=== PATIENT | male | born 1945 | race Hispanic/Latino ===

== ENCOUNTER → 2019-01-14 | Day surgery (SDC) | payer MEDICARE ==
[~2019-01-14] MED LIST: AMLODIPINE BESY10 MG PO; FENTANYL CITRATE/PF 100MCG/2 ML INJ ONE; LISINOPRIL10 MG PO; MIDAZOLAM HCL 2 MG/2 ML VIAL ONE; OR PHACO EYE KIT ONE; PREOP PHACO EYE KIT ONE
--- OUTSIDE RECORDS SUMMARY | 2019-01-14 10:36 | XMS REPORT | Clinical Summary ---
Author Author [facility] Organization [facility] Address Unknown Phone Unavailable Care Team Providers Care Carburetor Repairer Name Role Phone Juan Ramon Peters PCP Allergies No Known Allergies Medications End Date Status Medication Sig Dispensed Refills Start Date Active amLODIPine (NORVASC) 10 Take 10 mg by 0 MG tablet mouth daily. Active lisinopril Take 40 mg by 0 (PRINIVIL,ZESTRIL) 40 MG mouth daily. tablet 02/22/2019 Active furosemide (LASIX) 20 MG Take 1 tablet 30 tablet 0 tablet (20 mg total) 8 by mouth daily. Active pantoprazole (PROTONIX) Take 1 tablet 60 tablet 0 40 MG tablet (40 mg total) 8 by mouth 2 (two) times daily. Active clarithromycin (BIAXIN) Take 500 mg 0 500 MG tablet by mouth 2 (two) times daily. Active omeprazole (PRILOSEC) 20 Take 20 mg by 0 MG capsule mouth daily. Active amoxicillin (AMOXIL) 500 Take 500 mg 0 MG capsule by mouth 3 (three) times daily. 03/03/2018 predniSONE (DELTASONE) 20 Take 2 10 tablet 0 201 MG tablet tablets (40 8 mg total) by mouth daily for 10 days. 03/31/2018 predniSONE (DELTASONE) 20 Take 2 8 tablet 0 03/27/201 MG tablet tablets (40 8 mg total) by mouth daily for 4 days. 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) 03/27/2018 Emergency Emergency Medicine Rigoberto Cash Jr., MD 02/21/2018 Anesthesia Gastroenterology Event Ady Gamez MD UPPER ENDOSCOPY,BIOPSY 02/21/2018 Surgery Gastroenterology Cornel Lassiter MD Pathak, Yashash D Dyspnea and respiratory abnormality (Primary Dx); Hypertension, unspecified type; Hiatal hernia; Pneumonitis; Bilateral leg edema; Hypervolemia, unspecified hypervolemia type; Esophageal dysmotility; Gastroesophageal reflux disease, esophagitis presence not specified 02/18/2018 Hospital General Internal Medicine - Encounter 02/21/2018 02/18/2018 Orders Only General Internal Medicine after 01/13/2018 Family History Medical History Relation Name Comments No Known Problem Brother No Known Problem Father No Known Problem Maternal Grandfather No Known Problem Mother No Known Problem Paternal Grandfather No Known Problem Paternal Grandmother No Known Problem Sister Relation Name Status Comments Brother Father Maternal Grandfather Mother Paternal Grandfather Paternal Grandmother Sister Social History Date Tobacco Use Types Packs/Day Years Used Never Smoker Smokeless Tobacco: Never Used Alcohol Use Drinks/Week oz/Week Comments No Sex Assigned at Date Recorded Not on file Industry Job Start Date Occupation Not on file Not on file Not on file Travel End Travel History Travel Start No recent travel history available. Last Filed Vital Signs Time Taken Vital Sign Reading 03/27/2018 5:07 AM CDT Blood Pressure 138/78 03/27/2018 5:07 AM CDT Pulse 79 03/26/2018 10:31 PM CDT Temperature 36.8 C (98.3 F) 03/27/2018 5:07 AM CDT Respiratory Rate 16 03/27/2018 5:07 AM CDT Oxygen Saturation 98% 02/18/2018 2:40 PM CDT Inhaled Oxygen 21% Concentration 03/26/2018 10:31 PM CDT Weight 106.6 kg (235 lb) 03/26/2018 10:31 PM CDT Height 170.2 cm (5' 7") 03/26/2018 10:31 PM CDT Body Mass Index 36.81 Plan of Treatment Not on file Procedures Comments Procedure Name Priority Date/Time Associated Diagnosis RHYTHM STRIP - SCAN 08/29/2018 3:[address] CHEST WITHOUT IV Routine 06/17/[address] scan, chest CONTRAST 8:04 AM CDT RHYTHM STRIP - SCAN 02/25/2018 12:50 PM CDT REPORT OF PROCEDURE - 02/21/2018 ENDOSCOPY URL 2:28 PM CDT TISSUE EXAM AP Routine 02/21/2018 1:12 PM CDT UPPER ENDOSCOPY,BIOPSY 02/21/2018 Abnormal findings on 1:00 PM CDT imaging test CBC (HEMOGRAM ONLY) Routine 02/21/2018 5:03 AM CDT MAGNESIUM Routine 02/21/2018 5:03 AM CDT PROTHROMBIN TIME/INR Routine 02/21/2018 5:03 AM CDT LIPID PANEL Routine 02/21/2018 5:03 AM CDT HEPATIC FUNCTION PANEL Routine 02/21/2018 5:03 AM CDT CALCIUM, IONIZED Routine 02/21/2018 5:03 AM CDT BASIC METABOLIC PANEL (7) Routine 02/21/2018 5:[address] ABDOMEN/PELVIS WITH IV Routine 02/20/2018 CONTRAST 8:47 PM CDT ECHOCARDIOGRAM REPORT - 02/20/2018 SCAN 5:43 PM CDT 2D ECHO W/ DOPPLER Routine 02/20/2018 (CW/PW/COLOR) 3:02 PM CDT NM MYOCARDIAL PERFUSION Routine 02/20/2018 SPECT, PHARM(LEXISCAN) 2:28 PM CDT TREADMILL Routine 02/20/2018 TOLERANCE(NON-NUCLEAR 10:10 AM CDT TREADMILL) CBC (HEMOGRAM ONLY) Routine 02/20/2018 5:03 AM CDT MAGNESIUM Routine 02/20/2018 5:03 AM CDT PROTHROMBIN TIME/INR Routine 02/20/2018 5:03 AM CDT LIPID PANEL Routine 02/20/2018 5:03 AM CDT HEPATIC FUNCTION PANEL Routine 02/20/2018 5:03 AM CDT CALCIUM, IONIZED Routine 02/20/2018 5:03 AM CDT BASIC METABOLIC PANEL (7) Routine 02/20/2018 5:03 AM CDT FL ESOPHAGUS PHARNYX Routine 02/19/2018 AND/OR CERVICAL 10:13 AM CDT CBC W/PLT COUNT & AUTO Routine 02/19/2018 DIFFERENTIAL 4:35 AM CDT HEMOGLOBIN A1C Routine 02/19/2018 4:35 AM CDT CBC W/PLT COUNT & AUTO Routine 02/19/2018 DIFFERENTIAL 4:35 AM CDT MAGNESIUM Routine 02/19/2018 4:35 AM CDT PROTHROMBIN TIME/INR Routine 02/19/2018 4:35 AM CDT LIPID PANEL Routine 02/19/2018 4:35 AM CDT HEPATIC FUNCTION PANEL Routine 02/19/2018 4:35 AM CDT CALCIUM, IONIZED Routine 02/19/2018 4:35 AM CDT BASIC METABOLIC PANEL (7) Routine 02/19/2018 4:35 AM CDT TROPONIN I Routine 02/19/2018 4:35 AM CDT ECG 12-LEAD Routine 02/18/2018 8:15 PM CDT HEPATIC FUNCTION PANEL Routine 02/18/2018 5:40 PM CDT TROPONIN I Routine 02/18/2018 5:40 PM CDT COMPREHENSIVE METABOLIC Routine 02/18/2018 PANEL 5:40 PM CDT BLOOD GAS, ARTERIAL Routine 02/18/2018 2:51 PM CDT XR ABDOMEN 1 VIEW STAT 02/18/2018 12:[address] CHEST PE TEST DESIGN STAT 02/18/2018 9:37 AM CDT XR CHEST 1 VIEW STAT 02/18/2018 PORTABLE/BEDSIDE 8:44 AM CDT ECG 12-LEAD Routine 02/18/2018 8:18 AM CDT Procedure Note - Interface, External Ris In - 02/18/2018 7:08 PM CDT Ventricula r Rate 59 BPM Atrial Rate 59 BPM P-R Interval 166 ms QRS Duration 136 ms Q-T Interval 452 ms QTC Calculatio n(Bazett) 447 ms P [place] 40 degrees R [place] -33 degrees T [place] 36 degrees Sinus bradycardi a Left axis deviation Non-specif ic intra-vent ricular conduction block Abnormal ECG No previous ECGs available ECG 12-LEAD STAT 02/18/2018 8:18 AM CDT CBC W/PLT COUNT & AUTO STAT 02/18/2018 DIFFERENTIAL 8:03 AM CDT CREATINE KINASE (CK), STAT 02/18/2018 TOTAL AND MB 8:03 AM CDT B-TYPE NATRIURETIC FACTOR STAT 02/18/2018 (BNP) 8:03 AM CDT PT/APTT STAT 02/18/2018 8:03 AM CDT CBC W/PLT COUNT & AUTO STAT 02/18/2018 DIFFERENTIAL 8:03 AM CDT TROPONIN I STAT 02/18/2018 8:03 AM CDT MAGNESIUM STAT 02/18/2018 8:03 AM CDT BASIC METABOLIC PANEL (7) STAT 02/18/2018 8:03 AM CDT after 01/13/2018 Results * RHYTHM STRIP - SCAN (08/29/2018 3:11 PM CDT) Only the most recent of 2 results within the time period is included. Narrative Performed At * CT chest without IV contrast (06/17/2018 8:04 AM CDT) Narrative Performed At FINAL REPORT 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 COMPARISON: Esophagram February 19, [address] February 18, 2018 TECHNIQUE: Chest CT exam WITHOUT intravenous contrast. The exam was performed according to our department dose-optimization protocol, which includes automated exposure control, adjustments of mA and kV according to patient size. Iterative reconstructions are also sometimes employed. FINDINGS: Lungs are clear. Central airways are clear. No pleural effusion, pneumothorax, or pleural nodularity. No mediastinal or hilar lymphadenopathy is demonstrated. Heart is at the upper limits of normal in size (left atrium anterior posterior dimension 4.5 cm). Mild coronary artery calcification noted. No pericardial effusion. Thoracic aorta normal in diameter (ascending thoracic aorta diameter 4.0 cm). Main pulmonary artery at the upper limits of normal measuring approximately 3.2 cm. Esophagus is mildly patulous. Osseous structures are notable for multilevel thoracic vertebral moderate degenerative changes. IMPRESSION: Clear lungs. Mildly patulous esophagus, likely related to gastroesophageal reflux demonstrated on esophagram February 19, 2018. 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 COMPARISON: Esophagram February 19, [address] February 18, 2018 TECHNIQUE: Chest CT exam WITHOUT intravenous contrast. The exam was performed according to our department dose-optimization protocol, which includes automated exposure control, adjustments of mA and kV according to patient size. Iterative reconstructions are also sometimes employed. FINDINGS: Lungs are clear. Central airways are clear. No pleural effusion, pneumothorax, or pleural nodularity. No mediastinal or hilar lymphadenopathy is demonstrated. Heart is at the upper limits of normal in size (left atrium anterior posterior dimension 4.5 cm). Mild coronary artery calcification noted. No pericardial effusion. Thoracic aorta normal in diameter (ascending thoracic aorta diameter 4.0 cm). Main pulmonary artery at the upper limits of normal measuring approximately 3.2 cm. Esophagus is mildly patulous. Osseous structures are notable for multilevel thoracic vertebral moderate degenerative changes. IMPRESSION: Clear lungs. Mildly patulous esophagus, likely related to gastroesophageal reflux demonstrated on esophagram February 19, 2018. Signed: Dwayne Blas MD Report Verified Date/Time: 06/17/2018 08:22:25 Reading Location: [facility] Diagnostic Imaging Reading Room - [place] [id number] Performing Organization Address City/State/Zipcode Phone Number [facility] * REPORT OF PROCEDURE - ENDOSCOPY URL (02/21/2018 2:28 PM CDT) Narrative Performed At * Tissue Exam (02/21/2018 1:12 PM CDT) Case Report Surgical Pathology [facility] Report [facility] Case: [id number] Authorizing Provider:Ady Gamez MDCollected: 02/21/2018 1312 Ordering Location: [address] Received: 02/22/2018 0750 Service Pathologist: He Aparicio MD Specimens: A) - Biopsy, Gastric B) - Biopsy, Gastroesophageal Junction DIAGNOSIS A. STOMACH, BIOPSY [facility] - CHRONIC INACTIVE GASTRITIS [facility] - POSITIVE FOR HELICOBACTER ON IMMUNOSTAIN B. GASTROESOPHAGEAL JUNCTION, BIOPSY - MILD CHRONIC ESOPHAGITIS - NEGATIVE FOR HELICOBACTER ON WARTHIN-STARRY STAIN Signing Pathologist Direct Phone Line: [phone] CPT Code(s) 71333 x 2; 97160 x 2; 85335 [facility] CLINICAL HISTORY Abnormal findings on imaging [facility] test [facility] SPECIMEN SOURCE A. Gastric biopsy; B. [facility] Gastroesophageal junction [facility] biopsy GROSS DESCRIPTION Specimen is received in two [facility] containers of formalin both [facility] labeled with the patient's information. Part A labeled "gastric biopsy" consists of two fragments of valencia tissue measuring 0.1 and 0.2 cm, submitted A1. Part B labeled "gastroesophageal junction biopsy" consists of two fragments of off white soft tissue both measuring 0.3 cm, submitted entirely B1. CG/pl MICROSCOPIC DESCRIPTION Performed. [facility] SPECIAL STUDIES The following special studies [facility] were performed on this case [facility] and the interpretation is incorporated in the diagnostic report above: H. Pylori - Positive The immunohistochemistry test was developed and its performance characteristics determined by [facility], Pathology Laboratory. It has not been cleared or approved by the U.S. Food and Drug Administration. The FDA has determined that such clearance or approval is not necessary. The test is used for clinical purposes. It should not be regarded as investigational or for research. This laboratory is certified under the Clinical Laboratory Improvement Amendments of 1988 (CLIA-88) as qualified to perform high complexity clinical laboratory testing. Specimen Tissue - Biopsy, Gastric Performing Organization Address [facility] Phone Number [address] * Calcium, Ionized (02/21/2018 5:03 AM CDT) Only the most recent of 3 results within the time period is included. Calcium, Ion 1.04 (L) 1.12 - 1.27 mmol/L [facility] pH, Blood 7.47 [facility] Specimen Blood - Arm, Left Performing Organization Address City/[facility] [place] [address] [phone] [place] [address] * Prothrombin time/INR (02/21/2018 5:03 AM CDT) Only the most recent of 3 results within the time period is included. Protime 14.3 11.7 - 14.7 seconds [facility] INR 1.1 <=5.9 [facility] Specimen Blood - Arm, Left Narrative Performed At RECOMMENDED COUMADIN/WARFARIN INR THERAPY RANGES [facility] STANDARD DOSE: 2.0 - 3.0 Includes: PROPHYLAXIS for venous thrombosis, [facility] systemic embolization; TREATMENT for venous thrombosis and/or pulmonary embolus. HIGH RISK: Target INR is 2.5-3.5 for patients with mechanical heart valves. Performing Organization Address City/[facility] Phone Number [facility] [address] [place] [address] [facility] * CBC (Hemogram only) (02/21/2018 5:03 AM CDT) Only the most recent of 2 results within the time period is included. WBC 7.8 3.5 - 10.5 K/L [facility] RBC 4.86 4.63 - 6.08 M/L [facility] Hemoglobin 14.8 13.7 - 17.5 GM/DL [facility] Hematocrit 44.1 40.1 - 51.0 % [facility] MCV 90.7 79.0 - 92.2 fL [facility] MCH 30.5 25.7 - 32.2 pg [facility] MCHC 33.6 32.3 - 36.5 GM/DL [facility] RDW 12.9 11.6 - 14.4 % [facility] Platelets 199 150 - 450 K/CU MM [facility] MPV 11.5 9.4 - 12.4 fL [facility] nRBC 0 0 - 0 /100 WBC [facility] Specimen Blood - Arm, Left Performing Organization Address [facility] Phone Number [facility] [address] [place] [address] [facility] * Magnesium (02/21/2018 5:03 AM CDT) Only the most recent of 4 results within the time period is included. Magnesium 2.5Comment: Specimen slightly 1.6 - 2.6 mg/dL [facility] hemolyzed [facility] Specimen Blood - Arm, Left Performing Organization Address City/[facility] Phone Number [facility] [address] [place], [place] [phone] [facility] * Hepatic function panel (02/21/2018 5:03 AM CDT) Only the most recent of 4 results within the time period is included. Protein, Total 6.9Comment: Specimen slightly 6.0 - 8.3 gm/dL [facility] Albumin 4.3Comment: Specimen slightly 3.5 - 5.0 g/dL [facility] Total Bilirubin 0.6Comment: Specimen slightly 0.2 - 1.2 mg/dL [facility] Bilirubin, Direct 0.2Comment: Specimen slightly 0.1 - 0.5 mg/dL [facility] Alkaline Phosphatase 78 40 - 150 U/L [facility] AST 46 (H)Comment: Specimen 5 - 34 U/L [facility] ALT 28Comment: Specimen slightly 6 - 55 U/L [facility] Specimen Blood - Arm, Left Performing Organization Address City/State/Zipcode Phone Number [facility] [address] [place] [address] [facility] * Lipid panel (02/21/2018 5:03 AM CDT) Only the most recent of 3 results within the time period is included. Triglycerides 76Comment: Specimen slightly mg/dL [facility] Cholesterol 172Comment: Specimen slightly mg/dL [facility] HDL 38 mg/dL [facility] LDL Calculated 119 mg/dL [facility] Specimen Blood - Arm, Left Narrative Performed At Triglyceride Reference Range: [facility] Low Risk <150 [facility] [id number] High Risk 200-499 Very High Risk>=500 Cholesterol Reference Range: Low Risk <200 Ylqrijvvgc508-165 High Risk>240 HDL Cholesterol Reference Range: Low Risk >=60 High Risk <40 LDL Cholesterol Reference Range: Optimal<100 Near Cwtuvfg190-887 Hmerhylrkx343-308 Gwhs385-524 Very High >=190 Performing Organization Address [facility] Phone Number [facility] [address] [place], [place] [phone] [facility] * Basic metabolic panel (02/21/2018 5:03 AM CDT) Only the most recent of 4 results within the time period is included. Sodium 138 136 - 145 meq/L [facility] Potassium 3.9Comment: Specimen slightly 3.5 - 5.1 meq/L [facility] Chloride 106 98 - 107 meq/L [facility] CO2 20 (L) 22 - 29 meq/L [facility] BUN 33 (H) 7 - 21 mg/dL [facility] Creatinine 0.87Comment: Specimen slightly 0.57 - 1.25 mg/dL [facility] Glucose 101 70 - 105 mg/dL [facility] Calcium 9.1 8.4 - 10.2 mg/dL [facility] EGFR 86Comment: ESTIMATED GFR IS mL/min/1.73 sq m [facility] NOT ACCURATE CREATININE [facility] CLEARANCE IN PREDICTING GLOMERULAR FILTRATION RATE. ESTIMATED GFR IS NOT APPLICABLE FOR DIALYSIS PATIENTS. Specimen Blood - Arm, Left Performing Organization Address [facility] Phone Number [place] [phone] [place] [address] [facility] * CT abdomen/pelvis with IV contrast (02/20/2018 8:47 PM CDT) Narrative Performed At FINAL REPORT [employer] CT abdomen and pelvis with contrast. INDICATION: Hernia, complicated COMPARISON:No prior studies available for comparison. TECHNIQUE: Multiple contiguous transaxial images of the abdomen and pelvis were obtained following the administration of intravenous contrast. This exam was performed according to our departmental dose optimization program which includes automated exposure control, adjustment of the mA and/or kV according to patient size and/or use of iterative reconstructive technique. FINDINGS: The lung bases demonstrate mild atelectasis. The osseous structures demonstrate degenerative change. The liver demonstrates a subtle enhancing lesion in the right hepatic lobe measuring 1.9 x 1.4 cm. Additional foci of hypodensity are seen measuring up to 1.7 cm in the left hepatic lobe, suggestive of cysts statistically. The gallbladder is unremarkable. There is no biliary dilatation. The spleen, pancreas, and adrenal glands are unremarkable. The stomach is underdistended limiting its evaluation. Both kidneys are unremarkable. The urinary bladder is underdistended limiting its evaluation. There is no hydronephrosis. The prostate gland appears prominent. There is no free fluid in the pelvis. There is scattered colonic diverticulosis without acute diverticulitis. Residual dense contrast material is seen throughout the colonic loops, limiting its evaluation. There is no CT evidence of acute appendicitis. There is no fluid collection or lymphadenopathy. Small fat-containing bilateral inguinal hernias are noted. IMPRESSION: 1. Colonic diverticulosis without acute diverticulitis. 2. Small fat-containing bilateral inguinal hernias. 3. Enhancing lesion in the right hepatic lobe as above which can be further evaluated with follow-up MRI with contrast for more definitive assessment. Additional foci of hypodensity suggestive of cysts. Signed: Zoran Smith MD Report Verified Date/Time:02/20/2018 22:28:44 Reading Location: [address] Consult Reading Room Procedure Note Interface, External Ris In - 02/20/2018 10:30 PM CDT FINAL REPORT CT abdomen and pelvis with contrast. INDICATION: Hernia, complicated COMPARISON: No prior studies available for comparison. TECHNIQUE: Multiple contiguous transaxial images of the abdomen and pelvis were obtained following the administration of intravenous contrast. This exam was performed according to our departmental dose optimization program which includes automated exposure control, adjustment of the mA and/or kV according to patient size and/or use of iterative reconstructive technique. FINDINGS: The lung bases demonstrate mild atelectasis. The osseous structures demonstrate degenerative change. The liver demonstrates a subtle enhancing lesion in the right hepatic lobe measuring 1.9 x 1.4 cm. Additional foci of hypodensity are seen measuring up to 1.7 cm in the left hepatic lobe, suggestive of cysts statistically. The gallbladder is unremarkable. There is no biliary dilatation. The spleen, pancreas, and adrenal glands are unremarkable. The stomach is underdistended limiting its evaluation. Both kidneys are unremarkable. The urinary bladder is underdistended limiting its evaluation. There is no hydronephrosis. The prostate gland appears prominent. There is no free fluid in the pelvis. There is scattered colonic diverticulosis without acute diverticulitis. Residual dense contrast material is seen throughout the colonic loops, limiting its evaluation. There is no CT evidence of acute appendicitis. There is no fluid collection or lymphadenopathy. Small fat-containing bilateral inguinal hernias are noted. IMPRESSION: 1. Colonic diverticulosis without acute diverticulitis. 2. Small fat-containing bilateral inguinal hernias. 3. Enhancing lesion in the right hepatic lobe as above which can be further evaluated with follow-up MRI with contrast for more definitive assessment. Additional foci of hypodensity suggestive of cysts. Signed: Zoran Smith MD Report Verified Date/Time: 02/20/2018 22:28:44 Reading Location: [address] Consult Reading Room Performing Organization Address City/State/Zipcode Phone Number [facility] * ECHOCARDIOGRAM REPORT - SCAN (02/20/2018 5:43 PM CDT) Narrative Performed At * 2D Echo W/Doppler(CW/PW/Color) (02/20/2018 3:02 PM CDT) Ejection Fraction [facility] Narrative Performed At Transthoracic Echocardiography Report (TTE) [facility] Demographics [facility] Patient NameDominique DONNELLY of Study02/20/2018 DARLENE Gender Male Visit [id number] Race Unknown [id number] Number Date of 1945 ReferringAdalbertou Cornel [place] Age 72 year(s) SonographerOscar CHICHI Viera Interpreting [facility] Needs to be Pre Physician Read Sherri Chowdhury MD Procedure Type of Study TTE procedure:2DECHO W DOPPLER(CW/PW/COLOR) (Routine) Indications:Shortness of breath. Clinical History HTN, HERNIA REPAIR, OBESITY HGB 14.4 HCT 42.8 % Contrast Medium: Definity. Amount - 2 ml Height: 66 inches Weight: 108.41 kg (239 lbs) BSA: 2.16 m^2 BMI: 38.58 kg/m^2 HR: 67 bpm BP: 134/58 mmHg Summary Mildly increased left ventricle cavity size. Normal overall left ventricular systolic function. No apparent segmental wall motion abnormalities. Borderline concentric LV hypertrophy. The calculated ejection fraction was estimated 65 %. Indeterminate diastolic function. No prior ECHO for comparison LA size is mildly enlarged (35-41 ml/m2) . The right ventricular cavity size is mildly enlarged . Normal right ventricular systolic function. RA size is mildly dilated. Signature Findings Left Ventricle Mildly increased left ventricle cavity size. Normal overall left ventricular systolic function. No apparent segmental wall motion abnormalities. Borderline concentric LV hypertrophy. The calculated ejection fraction was estimated 65 %. Indeterminate diastolic function. Left AtriumLA size is mildly enlarged (35-41 ml/m2) . Right VentricleThe right ventricular cavity size is mildly enlarged . Normal right ventricular systolic function. Right Atrium RA size is mildly dilated. Aortic Valve There is no aortic stenosis. The aortic valve leaflets appear mildly thickened There is no aortic regurgitation. Mitral Valve Mild MV leaflet thickening. Mild mitral annular calcification. Tricuspid ValveNormal TV structure and function. Estimated peak systolic PA pressure is cannot be determined due to inadequate TR velocity signal . Pulmonic Valve Normal PV structure and function. Mild pulmonary regurgitation. PericardiumNo pericardial effusion is visualized. IVC/SVC/PA/PV/PleuralThe estimated RA pressure by IVC dynamics 0-5mmHg . Chambers/Structures Left Atrium LA Volume: 79.95 ml LA Area: 24.34 cm^2 LA Vol. Index: 37 ml/m^2 Left Ventricle LVIDd: 5.25 cm LVIDs: 2.98 cm LV Septum Diastolic: 1.13 cm LV PW Diastolic: 1.03 cmLV FS: 43.2 % LVEDV Diehl's:177.24 ml LVESV Diehl's:57.24 mlLVEDVI: 82 ml/m^2 LVEF Diehl's: 67.7 %LVESVI: 26 ml/m^2 LVOT Diameter: 2.14 cm Right Ventricle RV Diast Dim.: 3.37 cm Aorta Ao Root S of Leslie.: 3.23 cm Doppler/Quantitative Measurements Mitral Valve MV Peak E-Wave: 0.78 m/s Peak Gradient: 2.44 mmHg MV Dillon. 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 Clinical History HTN, HERNIA REPAIR, OBESITY HGB 14.4 HCT 42.8 % Contrast Medium: Definity. Amount - 2 ml Height: 66 inches Weight: 108.41 kg (239 lbs) BSA: 2.16 m^2 BMI: 38.58 kg/m^2 HR: 67 bpm BP: 134/58 mmHg Summary Mildly increased left ventricle cavity size. Normal overall left ventricular systolic function. No apparent segmental wall motion abnormalities. Borderline concentric LV hypertrophy. The calculated ejection fraction was estimated 65 %. Indeterminate diastolic function. No prior ECHO for comparison LA size is mildly enlarged (35-41 ml/m2) . The right ventricular cavity size is mildly enlarged . Normal right ventricular systolic function. RA size is mildly dilated. Signature Findings Left Ventricle Mildly increased left ventricle cavity size. Normal overall left ventricular systolic function. No apparent segmental wall motion abnormalities. Borderline concentric LV hypertrophy. The calculated ejection fraction was estimated 65 %. Indeterminate diastolic function. Left Atrium LA size is mildly enlarged (35-41 ml/m2) . Right Ventricle The right ventricular cavity size is mildly enlarged . Normal right ventricular systolic function. Right Atrium RA size is mildly dilated. Aortic Valve There is no aortic stenosis. The aortic valve leaflets appear mildly thickened There is no aortic regurgitation. Mitral Valve Mild MV leaflet thickening. Mild mitral annular calcification. Tricuspid Valve Normal TV structure and function. Estimated peak systolic PA pressure is cannot be determined due to inadequate TR velocity signal . Pulmonic Valve Normal PV structure and function. Mild pulmonary regurgitation. Pericardium No pericardial effusion is visualized. IVC/SVC/PA/PV/Pleural The estimated RA pressure by IVC dynamics 0-5mmHg . Chambers/Structures Left Atrium LA Volume: 79.95 ml LA Area: 24.34 cm^2 LA Vol. Index: 37 ml/m^2 Left Ventricle LVIDd: 5.25 cm LVIDs: 2.98 cm LV Septum Diastolic: 1.13 cm LV PW Diastolic: 1.03 cm LV FS: 43.2 % LVEDV Diehl's:177.24 ml LVESV Diehl's:57.24 ml LVEDVI: 82 ml/m^2 LVEF Diehl's: 67.7 % LVESVI: 26 ml/m^2 LVOT Diameter: 2.14 cm Right Ventricle RV Diast Dim.: 3.37 cm Aorta Ao Root S of Leslie.: 3.23 cm Doppler/Quantitative Measurements Mitral Valve MV Peak E-Wave: 0.78 m/s Peak Gradient: 2.44 mmHg MV Dillon. Peak: Tissue Doppler E' Septal Velocity: 0.12 m/s E/E': 6.58 LVOT LVOT Diameter: 2.14 cm LVOT Area: 3.6 cm^2 Performing Organization Address City/State/Zipcode Phone Number [facility] * NM myocardial perfusion SPECT,pharm(Lexiscan) (02/20/2018 2:28 PM CDT) Narrative Performed At FINAL REPORT [employer] PROCEDURE:Rest/Stress MYOCARDIAL PERFUSION SPECT with regadenoson\\XA9\\ CPT CODE:78786 INDICATION:Shortness of breath, cardiac origin suspected HISTORY:Cardiac risk factors: Hypertension. Other cardiovascular history: No reported CAD. Recent cardiac symptoms: Chest pain. Current cardiovascular-related medications: Amlodipine, Lovenox, Lasix. PROTOCOL:10.4 mCi of Tc-99m sestamibi was injected iv at rest, and SPECT (tomographic) images were obtained. Also, 30.3 mCi of Tc-99m sestamibi was injected iv at expected peak pharmacologic effect, and gated SPECT images were obtained. PRELIMINARY STRESS TEST DATA FROM NONINVASIVE CARDIOLOGY: Pharmacologic stress was by 10-second iv infusion of 0.4 mg of regadenoson. Radiotracer was injected 30 seconds after start of stress. Heart rate was 53 beats/min at rest and 80 beats/min (54 % of MPHR) at tracer injection. BP was 148/73 mmHg at rest and 145/83 mmHg at tracer injection. Stress was stopped for predetermined endpoint. The patient experienced dyspnea, flushing; treatment was not required. Preliminary ECG evaluation revealed sinus bradycardia, right bundle branch block at rest and no ischemic changes with stress. (Final ECG interpretation and other stress and monitoring data are reported separately by Cardiology.) IMAGING FINDINGS:Study quality is good. Images obtained after rest and stress injections show decreased inferolateral wall intensity. LV and RV volumes appear normal. Gated images obtained at rest after stress show normal LV wall motion and thickening. QGS LVEF is greater than 60%. IMPRESSION: 1. Normal study.2. Appropriate pharmacologic stress. 3. Normal myocardial perfusion with diaphragmatic attenuation artifact. 4. Normal resting LV function.5. Normal extracardiac tracer distribution.6. No previous [facility] study for comparison. NONINVASIVE RISK STRATIFICATION: The above findings are considered low risk (<1% annual mortality rate) based on the following criterion: - Normal or small myocardial perfusion defect at rest or with stress ([facility]. 2012;59(9):878-88.) Signed: Trevin Nichols MD Report Verified Date/Time:02/20/2018 15:43:59 Reading Location: [address] Reading Room Procedure Note Interface, External Ris In - 02/20/2018 3:46 PM CDT FINAL REPORT PROCEDURE: Rest/Stress MYOCARDIAL PERFUSION SPECT with regadenoson\\XA9\\ CPT CODE: 03317 INDICATION: Shortness of breath, cardiac origin suspected HISTORY: Cardiac risk factors: Hypertension. Other cardiovascular history: No reported CAD. Recent cardiac symptoms: Chest pain. Current cardiovascular-related medications: Amlodipine, Lovenox, Lasix. PROTOCOL: 10.4 mCi of Tc-99m sestamibi was injected iv at rest, and SPECT (tomographic) images were obtained. Also, 30.3 mCi of Tc-99m sestamibi was injected iv at expected peak pharmacologic effect, and gated SPECT images were obtained. PRELIMINARY STRESS TEST DATA FROM NONINVASIVE CARDIOLOGY: Pharmacologic stress was by 10-second iv infusion of 0.4 mg of regadenoson. Radiotracer was injected 30 seconds after start of stress. Heart rate was 53 beats/min at rest and 80 beats/min (54 % of MPHR) at tracer injection. BP was 148/73 mmHg at rest and 145/83 mmHg at tracer injection. Stress was stopped for predetermined endpoint. The patient experienced dyspnea, flushing; treatment was not required. Preliminary ECG evaluation revealed sinus bradycardia, right bundle branch block at rest and no ischemic changes with stress. (Final ECG interpretation and other stress and monitoring data are reported separately by Cardiology.) IMAGING FINDINGS: Study quality is good. Images obtained after rest and stress injections show decreased inferolateral wall intensity. LV and RV volumes appear normal. Gated images obtained at rest after stress show normal LV wall motion and thickening. QGS LVEF is greater than 60%. IMPRESSION: 1. Normal study. 2. Appropriate pharmacologic stress. 3. Normal myocardial perfusion with diaphragmatic attenuation artifact. 4. Normal resting LV function. 5. Normal extracardiac tracer distribution. 6. No previous [facility] study for comparison. NONINVASIVE RISK STRATIFICATION: The above findings are considered low risk (<1% annual mortality rate) based on the following criterion: - Normal or small myocardial perfusion defect at rest or with stress ([facility]. 2012;59(9):857-81.) Signed: Trevin Nichols MD Report Verified Date/Time: 02/20/2018 15:43:59 Reading Location: [address] Reading Room Performing Organization Address City/State/Zipcode Phone Number GE RIS * Treadmill tolerance(Non-Nuclear Treadmill) (02/20/2018 10:10 AM CDT) Narrative Performed At Protocol Name Regadenoson [employer] Time In Exercise Phase 00:01:00 Max. Systolic BP 145 mmHg Max Diastolic BP 83 mmHg Max Heart Rate 80 BPM Max Predicted Heart Rate 147 BPM Reason For Termination Predetermined end point Reason for Test Dyspnea Target HR Formula (220 - Age)*100% Arrhythmias none Resting ECG sinus bradycardia right bundle branch block ST Changes No Significant Changes Overall Impression Indeterminate due to pharmacological stress Chest Pain none HR Response To Exercise BP Response To Exercise AMLODIPINE lovenox LASIX Confirmed by fellow Kailey Rosenbaum ([id number]) on 02/20/2018 1:47:28 PM Confirmed by MD MIRANDA JORGE ([id number]) on 02/25/2018 2:02:27 PM Procedure Note Interface, External Ris In - 02/25/2018 2:02 PM CDT Protocol Name Regadenoson Time In Exercise Phase 00:01:00 Max. Systolic BP 145 mmHg Max Diastolic BP 83 mmHg Max Heart Rate 80 BPM Max Predicted Heart Rate 147 BPM Reason For Termination Predetermined end point Reason for Test Dyspnea Target HR Formula (220 - Age)*100% Arrhythmias none Resting ECG sinus bradycardia right bundle branch block ST Changes No Significant Changes Overall Impression Indeterminate due to pharmacological stress Chest Pain none HR Response To Exercise BP Response To Exercise AMLODIPINE lovenox LASIX Confirmed by fellow Kailey Rosenbaum ([id number]) on 02/20/2018 1:47:28 PM Confirmed by MD RUTH, BENITO ([id number]) on 02/25/2018 2:02:27 PM Performing Organization Address City/State/Zipcode Phone Number RJ MUSE * FL esophagus (02/19/2018 10:13 AM CDT) Narrative Performed At FINAL REPORT [facility] Esophagram History: GERD Technique: Esophagram was performed using barium with air-contrast. Total fluoroscopy time: 0.93 minutes Total number of films: 18 Findings: Extensive tertiary contractions are seen throughout the esophagus, suggestive of esophageal dysmotility. There is no esophageal diverticulum or hiatus hernia. Moderate gastroesophageal reflux was observed. Impression: 1. Moderate gastroesophageal reflux. 2. Extensive tertiary contractions suggestive of underlying esophageal dysmotility. Signed: Zoran Smith MD Report Verified Date/Time:02/19/2018 10:31:00 Reading Location: [address] Ortho Consult Reading Room Procedure Note Interface, External Ris In - 02/19/2018 10:33 AM CDT FINAL REPORT Esophagram History: GERD Technique: Esophagram was performed using barium with air-contrast. Total fluoroscopy time: 0.93 minutes Total number of films: 18 Findings: Extensive tertiary contractions are seen throughout the esophagus, suggestive of esophageal dysmotility. There is no esophageal diverticulum or hiatus hernia. Moderate gastroesophageal reflux was observed. Impression: 1. Moderate gastroesophageal reflux. 2. Extensive tertiary contractions suggestive of underlying esophageal dysmotility. Signed: Zoran Smith MD Report Verified Date/Time: 02/19/2018 10:31:00 Reading Location: [address] Ortho Consult Reading Room Performing Organization Address City/State/Zipcode Phone Number GE RIS * CBC with platelet count + automated diff (02/19/2018 4:35 AM CDT) Only the most recent of 2 results within the time period is included. WBC 7.8 3.5 - 10.5 K/L [facility] RBC 5.04 4.63 - 6.08 M/L [facility] Hemoglobin 15.3 13.7 - 17.5 GM/DL [facility] Hematocrit 44.7 40.1 - 51.0 % [facility] MCV 88.7 79.0 - 92.2 fL [facility] MCH 30.4 25.7 - 32.2 pg [facility] MCHC 34.2 32.3 - 36.5 GM/DL [facility] RDW 12.7 11.6 - 14.4 % [facility] Platelets 218 150 - 450 K/CU MM [facility] MPV 11.6 9.4 - 12.4 fL [facility] nRBC 0 0 - 0 /100 WBC [facility] % Neutros 83 % [facility] % Lymphs 15 % [facility] % Monos 1 % [facility] % Eos 0 % [facility] % Baso 0 % [facility] # Neutros 6.45 (H) 1.78 - 5.38 K/L [facility] # Lymphs 1.17 (L) 1.32 - 3.57 K/L [facility] # Monos 0.08 (L) 0.30 - 0.82 K/L [facility] # Eos 0.00 (L) 0.04 - 0.54 K/L [facility] # Baso 0.01 0.01 - 0.08 K/L [facility] Immature 1 0 - 1 % [facility] Granulocytes-Relative [facility] Specimen Blood - Arm, Left Performing Organization Address City/State/Zipcode Phone Number [facility] [address] * Troponin I (02/19/2018 4:35 AM CDT) Only the most recent of 3 results within the time period is included. Troponin I <0.01 0.00 - 0.03 ng/mL [facility] Specimen Blood - Arm, Left Narrative Performed At Troponin I (TnI) levels must be interpreted in the context of the presenting [facility] symptoms and the clinical findings. Elevated TnI levels indicate myocardial [facility] damage, but are not specific for ischemic heart disease. Elevated TnI levels are seen in patients with other cardiac conditions (including myocarditis and congestive heart failure), and slight TnI elevations occur in patients with other conditions, including sepsis, renal failure, acidosis, acute neurological disease, and persistent tachyarrhythmia. Performing Organization Address City/State/Zipcode Phone Number [address] * Hemoglobin A1c (02/19/2018 4:35 AM CDT) Hemoglobin A1C 5.0 4.3 - 6.1 % [facility] Specimen Blood - Arm, Left Performing Organization Address City/State/[facility] Phone Number [place] [phone] * ECG 12 lead (02/18/2018 8:15 PM CDT) Only the most recent of 2 results within the time period is included. Narrative Performed At Ventricular Rate 67 BPM GE MUSE Atrial Rate 67 BPM P-R Interval 158 ms QRS Duration 142 ms Q-T Interval 448 ms QTC Calculation(Bazett) 473 ms P [place] 41 degrees R [place] -39 degrees T [place] 22 degrees Normal sinus rhythm Left axis deviation Right bundle branch block Abnormal ECG When compared with ECG of 18-FEB-2018 08:18, No significant change was found Confirmed by Semaj RAINEY MICHAEL ([id number]) on 02/19/2018 8:12:03 AM Procedure Note Interface, External Ris In - 02/19/2018 8:12 AM CDT Ventricular Rate 67 BPM Atrial Rate 67 BPM P-R Interval 158 ms QRS Duration 142 ms Q-T Interval 448 ms QTC Calculation(Bazett) 473 ms P [place] 41 degrees R [place] -39 degrees T [place] 22 degrees Normal sinus rhythm Left axis deviation Right bundle branch block Abnormal ECG When compared with ECG of 18-FEB-2018 08:18, No significant change was found Confirmed by Semaj RAINEY MICHAEL ([id number]) on 02/19/2018 8:12:03 AM Performing Organization Address City/State/Zipcode Phone Number GE MUSE * Comprehensive metabolic panel (02/18/2018 5:40 PM CDT) Protein, Total 8.3Comment: Specimen 6.0 - 8.3 gm/dL [facility] hemolyzed [facility] Albumin 4.8Comment: Specimen 3.5 - 5.0 g/dL [facility] hemolyzed [facility] Alkaline Phosphatase 99 40 - 150 U/L [facility] Total Bilirubin 0.6Comment: Specimen 0.2 - 1.2 mg/dL [facility] hemolyzed [facility] Sodium 139 136 - 145 meq/L [facility] Potassium 4.6Comment: Specimen 3.5 - 5.1 meq/L [facility] hemolyzed [facility] Chloride 111 (H) 98 - 107 meq/L [facility] CO2 20 (L) 22 - 29 meq/L [facility] BUN 18 7 - 21 mg/dL [facility] Creatinine 0.94Comment: Specimen 0.57 - 1.25 mg/dL [facility] moderately hemolyzed [facility] Glucose 113 (H) 70 - 105 mg/dL [facility] Calcium 10.1 8.4 - 10.2 mg/dL [facility] AST 42 (H)Comment: Specimen 5 - 34 U/L [facility] hemolyzed [facility] ALT 21Comment: Specimen moderately 6 - 55 U/L [facility] EGFR 79Comment: ESTIMATED GFR IS mL/min/1.73 sq m [facility] NOT ACCURATE CREATININE [facility] CLEARANCE IN PREDICTING GLOMERULAR FILTRATION RATE. ESTIMATED GFR IS NOT APPLICABLE FOR DIALYSIS PATIENTS. Specimen Blood Narrative Performed At Add on [facility] Performing Organization Address [facility]/Zipcode Phone Number [facility] [address] [place] [address] [facility] * Blood gas, arterial (02/18/2018 2:51 PM CDT) pH, Arterial 7.46 (H) 7.35 - 7.45 [facility] pCO2, Arterial 33 (L) 35 - 45 mmHg [facility] pO2, Arterial 71 (L) 80 - 90 mmHg [facility] O2 Sat, Arterial 95.7 (L) 96.0 - 97.0 % [facility] HCO3, Arterial 23 21 - 29 mmol/L [facility] Base Excess, Arterial 0.0 -2.0 - 3.0 mmol/L [facility] Patient Temperature 36.1 C [facility] FIO2 21.0 % [facility] Specimen Blood - Arm, Right Performing Organization Address [facility] Phone Number [facility] [address] [place] [address] [facility] * XR abdomen / KUB 1 view (02/18/2018 12:23 PM CDT) Narrative Performed At FINAL REPORT [employer]. Abdomen one view INDICATION: Abdominal pain, shortness of breath COMPARISON: None available IMPRESSION: Two frontal images of the abdomen are provided. There is contrast residue in the bilateral renal collecting systems and bladder. The bowel gas pattern is nonspecific, but nonobstructive. Free air and fluid levels are not well assessed on a supine study. There are degenerative spine changes. No organomegaly is evident. Signed: Carmelo Alcazar MD Report Verified Date/Time:02/18/2018 12:34:13 Reading Location: [facility] Radiology Reading Room Procedure Note Interface, External Ris In - 02/18/2018 12:36 PM CDT FINAL REPORT Abdomen one view INDICATION: Abdominal pain, shortness of breath COMPARISON: None available IMPRESSION: Two frontal images of the abdomen are provided. There is contrast residue in the bilateral renal collecting systems and bladder. The bowel gas pattern is nonspecific, but nonobstructive. Free air and fluid levels are not well assessed on a supine study. There are degenerative spine changes. No organomegaly is evident. Signed: Carmelo Alcazar MD Report Verified Date/Time: 02/18/2018 12:34:13 Reading Location: [facility] Radiology Reading Room Performing Organization Address City/State/Zipcode Phone Number [facility] * CT chest PE test design (02/18/2018 9:37 AM CDT) Narrative Performed At FINAL REPORT [facility] CT OF THE CHEST, PULMONARY EMBOLISM PROTOCOL CLINICAL HISTORY:Shortness of breath TECHNIQUE: Precontrast axial images at the level of the pulmonary outflow tract are obtained for the purpose of contrast bolus tracking.Postcontrast axial images of the chest are subsequently obtained with optimal pulmonary arterial enhancement followed by delayed postcontrast images. Coronal 2D reformatted images are reviewed. This exam was performed according to our departmental dose-optimization program which includes automated exposure control, adjustment of the mA and/or kV according to patient size and/or use of iterative reconstruction technique. COMPARISON FILM:None DISCUSSION: TECHNICAL QUALITY: Adequate. PULMONARY ARTERIES: Proximal to its bifurcation,the main pulmonary artery measures 2.9 cm. No filling defects are identified within the pulmonary arteries to suggest acute pulmonary embolism. LINES/TUBES: None. LUNGS/AIRWAYS: Trachea and major airways are clear. No focal consolidation. Minimal subsegmental bibasilar atelectasis. PLEURA: No effusion or pneumothorax. HEART AND MEDIASTINUM: The ascending thoracic aorta is ectatic measuring 3.7 cm. No mediastinal or hilar lymphadenopathy. No pericardial effusion. Visualized heart is unremarkable for CT examination. BONES AND SOFT TISSUES: Degenerative changes in the thoracic spine. No destructive osseous lesion. UPPER ABDOMEN: Fluid attenuation cysts in the liver. Replaced left hepatic artery arises from the left gastric artery. Remainder of the visualized portions of the upper abdomen are unremarkable. IMPRESSION: Negative for pulmonary embolism. Mild ascending thoracic aortic ectasia. No acute findings in the chest. Signed: Patrick Harris MD Report Verified Date/Time:02/18/2018 09:55:34 Reading Location: [facility] Diagnostic Imaging Reading Room - [place] [id number] Procedure Note Interface, External Ris In - 02/18/2018 9:57 AM CDT FINAL REPORT CT OF THE CHEST, PULMONARY EMBOLISM PROTOCOL CLINICAL HISTORY: Shortness of breath TECHNIQUE: Precontrast axial images at the level of the pulmonary outflow tract are obtained for the purpose of contrast bolus tracking. Postcontrast axial images of the chest are subsequently obtained with optimal pulmonary arterial enhancement followed by delayed postcontrast images. Coronal 2D reformatted images are reviewed. This exam was performed according to our departmental dose-optimization program which includes automated exposure control, adjustment of the mA and/or kV according to patient size and/or use of iterative reconstruction technique. COMPARISON FILM: None DISCUSSION: TECHNICAL QUALITY: Adequate. PULMONARY ARTERIES: Proximal to its bifurcation,the main pulmonary artery measures 2.9 cm. No filling defects are identified within the pulmonary arteries to suggest acute pulmonary embolism. LINES/TUBES: None. LUNGS/AIRWAYS: Trachea and major airways are clear. No focal consolidation. Minimal subsegmental bibasilar atelectasis. PLEURA: No effusion or pneumothorax. HEART AND MEDIASTINUM: The ascending thoracic aorta is ectatic measuring 3.7 cm. No mediastinal or hilar lymphadenopathy. No pericardial effusion. Visualized heart is unremarkable for CT examination. BONES AND SOFT TISSUES: Degenerative changes in the thoracic spine. No destructive osseous lesion. UPPER ABDOMEN: Fluid attenuation cysts in the liver. Replaced left hepatic artery arises from the left gastric artery. Remainder of the visualized portions of the upper abdomen are unremarkable. IMPRESSION: Negative for pulmonary embolism. Mild ascending thoracic aortic ectasia. No acute findings in the chest. Signed: Patrick Harris MD Report Verified Date/Time: 02/18/2018 09:55:34 Reading Location: [facility] Diagnostic Imaging Reading Room - [place] [address] Performing Organization Address [facility] Phone Number GE [facility] * XR chest 1 view portable / bedside (02/18/2018 8:44 AM CDT) Narrative Performed At FINAL REPORT [facility] Chest one view INDICATION: Shortness of breath COMPARISON: None available IMPRESSION: Increased interstitial markings may indicate vascular congestion or mild atypical pneumonitis. No significant pleural effusion or pneumothorax is seen. Cardiomediastinal silhouette prominence is accentuated by obliquity and low lung volumes. No acute osseous abnormality is identified. Signed: Carmelo Alcazar MD Report Verified Date/Time:02/18/2018 08:47:14 Reading Location: [facility] Radiology Reading Room Procedure Note Interface, External Ris In - 02/18/2018 8:49 AM CDT FINAL REPORT Chest one view INDICATION: Shortness of breath COMPARISON: None available IMPRESSION: Increased interstitial markings may indicate vascular congestion or mild atypical pneumonitis. No significant pleural effusion or pneumothorax is seen. Cardiomediastinal silhouette prominence is accentuated by obliquity and low lung volumes. No acute osseous abnormality is identified. Signed: Carmelo Alcazar MD Report Verified Date/Time: 02/18/2018 08:47:14 Reading Location: [facility] Radiology Reading Room Performing Organization Address [facility] Hospital[facility] Phone Number GE [facility] * PT/PTT (02/18/2018 8:03 AM CDT) Protime 14.5 11.7 - 14.7 seconds [facility] INR 1.1 <=5.9 [facility] PTT 32.1 22.5 - 36.0 seconds [facility] Specimen Blood - Arm, Right Narrative Performed At RECOMMENDED COUMADIN/WARFARIN INR THERAPY RANGES [facility] STANDARD DOSE: 2.0 - 3.0 Includes: PROPHYLAXIS for venous thrombosis, [facility] systemic embolization; TREATMENT for venous thrombosis and/or pulmonary embolus. HIGH RISK: Target INR is 2.5-3.5 for patients with mechanical heart valves. Performing Organization Address City/[facility]/Zipcode Phone Number [facility] [address] [place], [place] [id number] [facility] * B-type Natriuretic Factor (BNP) (02/18/2018 8:03 AM CDT) BNP 95 0 - 100 pg/mL [facility] Specimen Blood - Arm, Right Performing Organization Address City/[facility] Hospitalcode Phone Number [facility] [address] [place] [address] [facility] * Creatine Kinase (CK), Total and MB (not available at [facility] [place]) (02/18/2018 8:03 AM CDT) Total CK 253 (H) 29 - 200 U/L [facility] CK-MB 4.0 0.0 - 6.6 ng/mL [facility] MB Relative Index 1.6 % [facility] Specimen Blood - Arm, Right Narrative Performed At CK-MB Reference Range: [facility] <6.7Normal [facility] 6.7-10.0Borderline >10.0 Abnormal Performing Organization Address [facility] Phone Number [facility] [address] [place] [address] [facility] after 01/13/2018 Insurance Payer Benefit Subscriber ID Type Phone Address Plan / Group [facility] - [employer]/MEDIC xxxxxxxxx MEDICARE MGD CARE ARE COMPLETE Advance Directives For more information, please contact: [address] [address] Date Inactivated Comments Code Status Date Activated 02/21/2018 9:03 PM Full Code 02/18/2018 12:00 PM This code status was determined by: Patient
--- OUTSIDE RECORDS SUMMARY | 2019-01-14 10:37 | XMS REPORT ---
[facility] Address Unknown Phone Unavailable Care Team Providers Care General Service Officer Name Role Phone Carlin PORTER Unavailable Unavailable Payers Payer Name Policy Type Policy Number Effective Date Expiration Date Problems This patient has no known problems. Allergies, Adverse Reactions, Alerts Allergy Name Allergy Type Status Severity Reaction(s) Onset Date Inactive Date Treating Clinician Comments No Known Allergies DA Active U 2018-04-15 00:00:00 Medications This patient has no known medications. 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 COMPARISON:Esophagram February 19, 2018Chest CT February 18, 2018 TECHNIQUE: Chest CT exam WITHOUT intravenous contrast. The exam was performed according to our department dose-optimization protocol, which includes automated exposure control, adjustments of mA and kV according to patient size. Iterative reconstructions are also sometimes employed. FINDINGS:Lungs are clear. Central airways are clear. No [...] on esophagram February 19, 2018. Signed: Dwayne Corrales MDReport Verified Date/Time: 06/17/2018 08:22:25 Reading Location: [facility] Diagnostic Imaging Reading Room - [place] [address] 1120 UE EXAM 2018-02-25 14:51:00 Surgical Pathology Report Case: [id number] Authorizing Provider: Ady Gamez MD Collected: 02/21/2018 1312 Ord ering Location: [address] Received: 02/22/2018 0750 Service Pathologist: He Aparicio MD Specimens: A) - Biopsy, Gastric B) - Biopsy, Gastroesophageal Junction A. STOMACH, BIOPSY- CHRONIC INACTIVE GASTRITIS- POSITIVE FOR HELICOBACTER ON IMMUNOSTAINB. GASTROESOPHAGEAL JUNCTION, BIOPSY- MILD CHRONIC ESOPHAGITIS- NEGATIVE FOR HELICOBACTER ON WARTHIN-STARRY STAIN Signing Pathologist Direct Phone Line: [phone] signed by He Aparicio MD on 02/25/2018 at 2:51 [id number] x 2; [id number] x 2; [id number] findings on imaging Scotty. Gastric biopsy; B. Gastroesophageal junction biopsySpecimen is received in two containers of formalin both labeled with the patient's information. Part A labeled "gastric biopsy" consists of two fragments of valencia tissue measuring 0.1 and 0.2 cm, submitted A1. Part B labeled "gastroesophageal junction biopsy" consists of two fragments of off white soft tissue both measuring 0.3 cm, submitted entirely B1. CG/pl Performed.The following special studies were performed on this case and the interpretation is incorporated in the diagnostic report above:H. Pylori - PositiveThe immunohistochemistry test was developed and its performance characteristics determined by [facility], Pathology Laboratory. It has not been [...] to perform high complexity clinical laboratory testing. CALCIUM, IONIZED 2018-02-21 07:34:00 CALCIUM IONIZED (BEAKER) (test wmbj=517) 1.04 mmol/L 1.12-1.27 PH, BLOOD (BEAKER) (test jtjj=7241) 7.47 [id number] 06:18:00* Test Item Value Reference Range Comments MAGNESIUM (BEAKER) (test aygl=182) 2.5 mg/dL 1.6-2.6 Specimen slightly hemolyzed BASIC METABOLIC [id number] 06:18:00* Test Item Value Reference Range Comments SODIUM (BEAKER) (test dnxp=076) 138 meq/L 136-145 POTASSIUM (BEAKER) (test epbl=501) 3.9 meq/L 3.5-5.1 Specimen slightly hemolyzed CHLORIDE (BEAKER) (test llje=855) 106 meq/L 98-107 CO2 (BEAKER) (test wlol=776) 20 meq/L 22-29 BLOOD UREA NITROGEN (BEAKER) (test eiqn=567) 33 mg/dL 7-21 CREATININE (BEAKER) (test rgtj=927) 0.87 mg/dL 0.57-1.25 Specimen slightly hemolyzed GLUCOSE RANDOM (BEAKER) (test miym=298) 101 mg/dL 70-105 CALCIUM (BEAKER) (test zrjv=909) 9.1 mg/dL 8.4-10.2 EGFR (BEAKER) (test asnd=3561) 86 mL/min/1.73 sq m ESTIMATED GFR IS NOT ACCURATE CREATININE CLEARANCE IN PREDICTING GLOMERULAR FILTRATION RATE. ESTIMATED GFR IS NOT APPLICABLE FOR DIALYSIS PATIENTS. LIPID [id number] 06:18:00* Test Item Value Reference Range Comments TRIGLYCERIDES (BEAKER) (test pkox=616) 76 mg/dL Specimen slightly hemolyzed CHOLESTEROL (BEAKER) (test fcym=630) 172 mg/dL Specimen slightly hemolyzed HDL CHOLESTEROL (BEAKER) (test rbyt=586) 38 mg/dL LDL CHOLESTEROL CALCULATED (BEAKER) (test iwhl=164) 119 mg/dL Triglyceride Reference Range: Low Risk <150 Borderline 150-199 High Risk 200-499 Very High Risk >=500Cholesterol Reference Range: Low Risk <200 Borderline 200-239 High Risk >240HDL Cholesterol Reference Range: Low Risk >=60 High Risk <40LDL Cholesterol Reference Range: Optimal <100 Near Optimal 100-129 Borderline 130-159 High 160-189 Very High >=190 HEPATIC FUNCTION [id number] 06:18:00* Test Item Value Reference Range Comments TOTAL PROTEIN (BEAKER) (test kspb=757) 6.9 gm/dL 6.0-8.3 Specimen slightly hemolyzed ALBUMIN (BEAKER) (test suib=6745) 4.3 g/dL 3.5-5.0 Specimen slightly hemolyzed BILIRUBIN TOTAL (BEAKER) (test vslf=091) 0.6 mg/dL 0.2-1.2 Specimen slightly hemolyzed BILIRUBIN DIRECT (BEAKER) (test cnfp=065) 0.2 mg/dL 0.1-0.5 Specimen slightly hemolyzed ALKALINE PHOSPHATASE (BEAKER) (test gtdf=669) 78 U/L 40-150 AST (SGOT) (BEAKER) (test hcdp=954) 46 U/L 5-34 Specimen slightly hemolyzed ALT (SGPT) (BEAKER) (test omfn=279) 28 U/L 6-55 Specimen slightly hemolyzed PROTHROMBIN [id number] 05:33:00* Test Item Value Reference Range Comments PROTIME (BEAKER) (test vqhq=125) 14.3 seconds 11.7-14.7 INR (BEAKER) (test turr=290) 1.1 <=5.9 RECOMMENDED COUMADIN/WARFARIN INR THERAPY RANGESSTANDARD DOSE: 2.0 - 3.0 Inclu hanny: PROPHYLAXIS for venous thrombosis, systemic embolization; TREATMENT for meri ous thrombosis and/or pulmonary embolus.HIGH RISK: Target INR is 2.5-3.5 for pat ients with mechanical heart valves.CBC (HEMOGRAM ONLY)2018-02-21 05:16:00* Test Item Value Reference Range Comments WHITE BLOOD CELL COUNT (BEAKER) (test qeqo=469) 7.8 K/ L 3.5-10.5 RED BLOOD CELL COUNT (BEAKER) (test tfou=923) 4.86 M/ L 4.63-6.08 HEMOGLOBIN (BEAKER) (test oqej=443) 14.8 GM/DL 13.7-17.5 HEMATOCRIT (BEAKER) (test zuuf=107) 44.1 % 40.1-51.0 MEAN CORPUSCULAR VOLUME (BEAKER) (test gasn=254) 90.7 fL 79.0-92.2 MEAN CORPUSCULAR HEMOGLOBIN (BEAKER) (test ndyq=654) 30.5 pg 25.7-32.2 MEAN CORPUSCULAR HEMOGLOBIN CONC (BEAKER) (test vyov=316) 33.6 GM/DL 32.3-36.5 RED CELL DISTRIBUTION WIDTH (BEAKER) (test gtax=820) 12.9 % 11.6-14.4 PLATELET COUNT (BEAKER) (test mqjt=957) 199 K/CU MM 150-450 MEAN PLATELET VOLUME (BEAKER) (test chte=243) 11.5 fL 9.4-12.4 NUCLEATED RED BLOOD CELLS (BEAKER) (test tzmx=945) 0 /100 WBC 0-0 CT, [id number] 22:28:00FINAL REPORT CT abdomen and pelvis with contrast. [...] is no hydronephrosis. The prostate gland appears prom inent. There is no free fluid in the pelvis. There is scattered colonic divertic ulosis without acute diverticulitis. Residual dense contrast material is seen th roughout the colonic loops, limiting its evaluation. There is no CT evidence of acute appendicitis. There is no fluid collection or lymphadenopathy. Small fat-c ontaining bilateral inguinal hernias are noted. IMPRESSION:1. Colonic diverticul osis without acute diverticulitis.2. Small fat-containing bilateral inguinal her nias.3. Enhancing lesion in the right hepatic lobe as above which can be further evaluated with follow-up MRI with contrast for more definitive assessment. Shay tional foci of hypodensity suggestive of cysts. Signed: Zoran Smith MDReport Fouzia ified Date/Time: 02/20/2018 22:28:44 Reading Location: [facility] C013X Ortho Consu lt Reading Room ARD IMAGING, MULTI, PHARM, [id number] 15:43:00FINAL REPORT PROCEDURE: Rest/Stress MYOCARDIAL PERFUSION SPECT with regadenoson\\XA9\\ CPT CODE: 42110 INDICATION: Shortness of breath, cardiac origin suspected HISTORY: Cardiac risk factors: Hypertension. Other cardiovascular history: No reported CAD. Recent cardiac sym ptoms: Chest pain. Current cardiovascular-related medications: Amlodipine, Loven ox, Lasix. PROTOCOL: 10.4 mCi of Tc-99m sestamibi was injected iv at rest, and SPECT (tomographic) images were obtained. Also, 30.3 mCi of Tc-99m sestamibi was injected iv at expected peak pharmacologic effect, and gated SPECT images w ere obtained. PRELIMINARY STRESS TEST DATA FROM NONINVASIVE CARDIOLOGY: Pharma cologic stress was by 10-second iv infusion of 0.4 mg of regadenoson. Radiotrace r was injected 30 seconds after start of stress. Heart rate was 53 beats/min at rest and 80 beats/min (54 % of MPHR) at tracer injection. BP was 148/73 mmHg at rest and 145/83 mmHg at tracer injection. Stress was stopped for predetermined e ndpoint. The patient experienced dyspnea, flushing; treatment was not required. Preliminary ECG evaluation revealed sinus bradycardia, right bundle branch block at rest and no ischemic changes with stress. (Final ECG interpretation and other stress and monitoring data are reported separately by Cardiology.) IMAGING FI NDINGS: Study quality is good. Images obtained after rest and stress inje ctions show decreased inferolateral wall intensity. LV and RV volumes appear nor mal. Gated images obtained at rest after stress show normal LV wall motion and t hickening. QGS LVEF is greater than 60%. IMPRESSION: 1. Normal study. 2. Mary ropriate pharmacologic stress. 3. Normal myocardial perfusion with diaphragmati c attenuation artifact. 4. Normal resting LV function. 5. Normal extracardiac t racer distribution. 6. No previous [facility] study for comparison. NONINVASIVE RI SK STRATIFICATION: The above findings are considered low risk (<1% annual mortality rate) based on the following criterion:- Normal or small myocardial perfusion defect at rest or with stress(JACC. 2012;59(9):857-81.) Signed: Trevin Nichols MDReport Verified Date/Time: 02/20/2018 15:43:59 Reading Location: [address] Reading Room [id number] 06:16:00* Test Item Value Reference Range Comments MAGNESIUM (BEAKER) (test mnln=772) 2.3 mg/dL 1.6-2.6 BASIC METABOLIC [id number] 06:16:00* Test Item Value Reference Range Comments SODIUM (BEAKER) (test xemd=225) 140 meq/L 136-145 POTASSIUM (BEAKER) (test lfni=121) 3.6 meq/L 3.5-5.1 CHLORIDE (BEAKER) (test wykr=441) 109 meq/L 98-107 CO2 (BEAKER) (test ttic=180) 22 meq/L 22-29 BLOOD UREA NITROGEN (BEAKER) (test kpsg=548) 35 mg/dL 7-21 CREATININE (BEAKER) (test gmsm=421) 0.94 mg/dL 0.57-1.25 GLUCOSE RANDOM (BEAKER) (test ywdj=717) 95 mg/dL 70-105 CALCIUM (BEAKER) (test jhda=732) 9.1 mg/dL 8.4-10.2 EGFR (BEAKER) (test seyv=0813) 79 mL/min/1.73 sq m ESTIMATED GFR IS NOT ACCURATE CREATININE CLEARANCE IN PREDICTING GLOMERULAR FILTRATION RATE. ESTIMATED GFR IS NOT APPLICABLE FOR DIALYSIS PATIENTS. LIPID [id number] 06:16:00* Test Item Value Reference Range Comments TRIGLYCERIDES (BEAKER) (test ichp=317) 76 mg/dL CHOLESTEROL (BEAKER) (test jbak=084) 155 mg/dL HDL CHOLESTEROL (BEAKER) (test kmjt=445) 34 mg/dL LDL CHOLESTEROL CALCULATED (BEAKER) (test uifl=970) 106 mg/dL Triglyceride Reference Range: Low Risk <150 Borderline 150-199 High Risk 200-499 Very High Risk >=500Cholesterol Reference Range: Low Risk <200 Borderline 200-239 High Risk >240HDL Cholesterol Reference Range: Low Risk >=60 High Risk <40LDL Cholesterol Reference Range: Optimal <100 Near Optimal 100-129 Borderline 130-159 High 160-189 Very High >=190 HEPATIC FUNCTION [id number] 06:16:00* Test Item Value Reference Range Comments TOTAL PROTEIN (BEAKER) (test lnmr=705) 6.5 gm/dL 6.0-8.3 ALBUMIN (BEAKER) (test qiqi=1613) 4.1 g/dL 3.5-5.0 BILIRUBIN TOTAL (BEAKER) (test koqf=673) 0.6 mg/dL 0.2-1.2 BILIRUBIN DIRECT (BEAKER) (test bfft=287) 0.3 mg/dL 0.1-0.5 ALKALINE PHOSPHATASE (BEAKER) (test askp=249) 78 U/L 40-150 AST (SGOT) (BEAKER) (test lmys=141) 54 U/L 5-34 ALT (SGPT) (BEAKER) (test nzdr=490) 25 U/L 6-55 CALCIUM, [id number] 06:14:00* Test Item Value Reference Range Comments CALCIUM IONIZED (BEAKER) (test svic=309) 1.17 mmol/L 1.12-1.27 PH, BLOOD (BEAKER) (test ctxt=2298) 7.42 PROTHROMBIN [id number] 05:48:00* Test Item Value Reference Range Comments PROTIME (BEAKER) (test frwt=341) 14.5 seconds 11.7-14.7 INR (BEAKER) (test ynwk=635) 1.1 <=5.9 RECOMMENDED COUMADIN/WARFARIN INR THERAPY RANGESSTANDARD DOSE: 2.0 - 3.0 Inclu hanny: PROPHYLAXIS for venous thrombosis, systemic embolization; TREATMENT for meri ous thrombosis and/or pulmonary embolus.HIGH RISK: Target INR is 2.5-3.5 for pat ients with mechanical heart valves.CBC (HEMOGRAM ONLY)2018-02-20 05:38:00* Test Item Value Reference Range Comments WHITE BLOOD CELL COUNT (BEAKER) (test hljk=978) 11.8 K/ L 3.5-10.5 RED BLOOD CELL COUNT (BEAKER) (test fgmd=690) 4.74 M/ L 4.63-6.08 HEMOGLOBIN (BEAKER) (test xxnb=388) 14.4 GM/DL 13.7-17.5 HEMATOCRIT (BEAKER) (test tyiq=912) 42.8 % 40.1-51.0 MEAN CORPUSCULAR VOLUME (BEAKER) (test rrla=819) 90.3 fL 79.0-92.2 MEAN CORPUSCULAR HEMOGLOBIN (BEAKER) (test bkjr=086) 30.4 pg 25.7-32.2 MEAN CORPUSCULAR HEMOGLOBIN CONC (BEAKER) (test mluy=620) 33.6 GM/DL 32.3-36.5 RED CELL DISTRIBUTION WIDTH (BEAKER) (test gdfp=191) 13.0 % 11.6-14.4 PLATELET COUNT (BEAKER) (test kvpc=968) 202 K/CU MM 150-450 MEAN PLATELET VOLUME (BEAKER) (test ulhv=561) 11.7 fL 9.4-12.4 NUCLEATED RED BLOOD CELLS (BEAKER) (test qiua=208) 0 /100 WBC 0-0 HEMOGLOBIN [id number] 10:59:00* Test Item Value Reference Range Comments HEMOGLOBIN A1C (BEAKER) (test baur=168) 5.0 % 4.3-6.1 FL, [id number] 10:31:00Reason for exam:->GERDFINAL REPORT Esophagram History: GERD Technique: Esophagram was performed using barium with air-contrast. Total fluoroscopy time: 0.93 minutes Total number of films: 18 Findings: Extensive tertiary contractions are seen throughout the esophagus, suggestive of esophageal dysmotility. There is no esophageal diverticulum or hiatus hernia. Moderate gastroesophageal reflux was observed. Impression: 1. Moderate gastroesophageal reflux.2. Extensive tertiary c ontractions suggestive of underlying esophageal dysmotility. Signed: Zoran Smith Verified Date/Time: 02/19/2018 10:31:00 Reading Location: [facility] C0X [facility] Reading Room IUM, [id number] 07:48:00* Test Item Value Reference Range Comments CALCIUM IONIZED (BEAKER) (test mzvy=021) 1.15 mmol/L 1.12-1.27 PH, BLOOD (BEAKER) (test xtet=8459) 7.38 PROTHROMBIN [id number] 05:34:00* Test Item Value Reference Range Comments PROTIME (BEAKER) (test svco=702) 15.6 seconds 11.7-14.7 INR (BEAKER) (test ckmi=418) 1.2 <=5.9 RECOMMENDED COUMADIN/WARFARIN INR THERAPY RANGESSTANDARD DOSE: 2.0 - 3.0 Inclu hanny: PROPHYLAXIS for venous thrombosis, systemic embolization; TREATMENT for meri ous thrombosis and/or pulmonary embolus.HIGH RISK: Target INR is 2.5-3.5 for pat ients with mechanical heart valves.[id number] 05:26:00* Test Item Value Reference Range Comments MAGNESIUM (BEAKER) (test vupf=811) 2.3 mg/dL 1.6-2.6 BASIC METABOLIC [id number] 05:26:00* Test Item Value Reference Range Comments SODIUM (BEAKER) (test qvta=044) 137 meq/L 136-145 POTASSIUM (BEAKER) (test sddx=688) 4.1 meq/L 3.5-5.1 CHLORIDE (BEAKER) (test seaf=922) 109 meq/L 98-107 CO2 (BEAKER) (test dodg=277) 20 meq/L 22-29 BLOOD UREA NITROGEN (BEAKER) (test zflz=505) 22 mg/dL 7-21 CREATININE (BEAKER) (test dkxs=466) 0.86 mg/dL 0.57-1.25 GLUCOSE RANDOM (BEAKER) (test ihtd=908) 132 mg/dL 70-105 CALCIUM (BEAKER) (test egcu=108) 9.8 mg/dL 8.4-10.2 EGFR (BEAKER) (test afpw=2633) 87 mL/min/1.73 sq m ESTIMATED GFR IS NOT ACCURATE CREATININE CLEARANCE IN PREDICTING GLOMERULAR FILTRATION RATE. ESTIMATED GFR IS NOT APPLICABLE FOR DIALYSIS PATIENTS. LIPID [id number] 05:26:00* Test Item Value Reference Range Comments TRIGLYCERIDES (BEAKER) (test rgqe=221) 42 mg/dL CHOLESTEROL (BEAKER) (test lwyc=208) 169 mg/dL HDL CHOLESTEROL (BEAKER) (test kgeb=527) 42 mg/dL LDL CHOLESTEROL CALCULATED (BEAKER) (test xqyt=359) 119 mg/dL Triglyceride Reference Range: Low Risk <150 Borderline 150-199 High Risk 200-499 Very High Risk >=500Cholesterol Reference Range: Low Risk <200 Borderline 200-239 High Risk >240HDL Cholesterol Reference Range: Low Risk >=60 High Risk <40LDL Cholesterol Reference Range: Optimal <100 Near Optimal 100-129 Borderline 130-159 High 160-189 Very High >=190 HEPATIC FUNCTION [id number] 05:26:00* Test Item Value Reference Range Comments TOTAL PROTEIN (BEAKER) (test kovp=909) 7.5 gm/dL 6.0-8.3 ALBUMIN (BEAKER) (test gfyf=2852) 4.6 g/dL 3.5-5.0 BILIRUBIN TOTAL (BEAKER) (test bgdq=229) 0.6 mg/dL 0.2-1.2 BILIRUBIN DIRECT (BEAKER) (test uygv=529) 0.3 mg/dL 0.1-0.5 ALKALINE PHOSPHATASE (BEAKER) (test yfsw=933) 92 U/L 40-150 AST (SGOT) (BEAKER) (test qqzn=121) 25 U/L 5-34 ALT (SGPT) (BEAKER) (test wwmp=413) 17 U/L 6-55 TROPONIN [id number] 05:18:00* Test Item Value Reference Range Comments TROPONIN I (BEAKER) (test hthn=218) < ng/mL 0.00-0.03 Troponin I (TnI) levels must be interpreted in the context of the presenting sym ptoms and the clinical findings. Elevated TnI levels indicate myocardial damage, but are not specific for ischemic heart disease. Elevated TnI levels are seen in patients with other cardiac conditions (including myocarditis and congestive h eart failure), and slight TnI elevations occur in patients with other conditions , including sepsis, renal failure, acidosis, acute neurological disease, and per sistent tachyarrhythmia.CBC W/PLT COUNT & AUTO [id number] 05:10:00* Test Item Value Reference Range Comments WHITE BLOOD CELL COUNT (BEAKER) (test tadd=787) 7.8 K/ L 3.5-10.5 RED BLOOD CELL COUNT (BEAKER) (test zwpj=741) 5.04 M/ L 4.63-6.08 HEMOGLOBIN (BEAKER) (test eesd=351) 15.3 GM/DL 13.7-17.5 HEMATOCRIT (BEAKER) (test aiyr=487) 44.7 % 40.1-51.0 MEAN CORPUSCULAR VOLUME (BEAKER) (test lyhg=501) 88.7 fL 79.0-92.2 MEAN CORPUSCULAR HEMOGLOBIN (BEAKER) (test dgil=135) 30.4 pg 25.7-32.2 MEAN CORPUSCULAR HEMOGLOBIN CONC (BEAKER) (test kvor=182) 34.2 GM/DL 32.3-36.5 RED CELL DISTRIBUTION WIDTH (BEAKER) (test nglr=046) 12.7 % 11.6-14.4 PLATELET COUNT (BEAKER) (test ufyu=340) 218 K/CU MM 150-450 MEAN PLATELET VOLUME (BEAKER) (test uvqa=260) 11.6 fL 9.4-12.4 NUCLEATED RED BLOOD CELLS (BEAKER) (test usbc=869) 0 /100 WBC 0-0 NEUTROPHILS RELATIVE PERCENT (BEAKER) (test jujf=550) 83 % LYMPHOCYTES RELATIVE PERCENT (BEAKER) (test bgxq=453) 15 % MONOCYTES RELATIVE PERCENT (BEAKER) (test ecrb=123) 1 % EOSINOPHILS RELATIVE PERCENT (BEAKER) (test qavb=804) 0 % BASOPHILS RELATIVE PERCENT (BEAKER) (test acbb=887) 0 % NEUTROPHILS ABSOLUTE COUNT (BEAKER) (test jdam=093) 6.45 K/ L 1.78-5.38 LYMPHOCYTES ABSOLUTE COUNT (BEAKER) (test vjul=626) 1.17 K/ L 1.32-3.57 MONOCYTES ABSOLUTE COUNT (BEAKER) (test vhqx=316) 0.08 K/ L 0.30-0.82 EOSINOPHILS ABSOLUTE COUNT (BEAKER) (test xqtk=720) 0.00 K/ L 0.04-0.54 BASOPHILS ABSOLUTE COUNT (BEAKER) (test ajqw=009) 0.01 K/ L 0.01-0.08 IMMATURE GRANULOCYTES-RELATIVE PERCENT (BEAKER) (test haek=5458) 1 % 0-1 TROPONIN [id number] 18:50:00* Test Item Value Reference Range Comments TROPONIN I (BEAKER) (test avjr=110) < ng/mL 0.00-0.03 Troponin I (TnI) levels must be interpreted in the context of the presenting sym ptoms and the clinical findings. Elevated TnI levels indicate myocardial damage, but are not specific for ischemic heart disease. Elevated TnI levels are seen in patients with other cardiac conditions (including myocarditis and congestive h eart failure), and slight TnI elevations occur in patients with other conditions , including sepsis, renal failure, acidosis, acute neurological disease, and per sistent tachyarrhythmia.COMPREHENSIVE METABOLIC [id number] 18:08:00* Test Item Value Reference Range Comments TOTAL PROTEIN (BEAKER) (test inue=401) 8.3 gm/dL 6.0-8.3 Specimen moderately hemolyzed ALBUMIN (BEAKER) (test wqeo=4267) 4.8 g/dL 3.5-5.0 Specimen moderately hemolyzed ALKALINE PHOSPHATASE (BEAKER) (test wmda=356) 99 U/L 40-150 BILIRUBIN TOTAL (BEAKER) (test juyn=294) 0.6 mg/dL 0.2-1.2 Specimen moderately hemolyzed SODIUM (BEAKER) (test oiex=202) 139 meq/L 136-145 POTASSIUM (BEAKER) (test zlzj=035) 4.6 meq/L 3.5-5.1 Specimen moderately hemolyzed CHLORIDE (BEAKER) (test pkpf=982) 111 meq/L 98-107 CO2 (BEAKER) (test slkw=471) 20 meq/L 22-29 BLOOD UREA NITROGEN (BEAKER) (test svqt=032) 18 mg/dL 7-21 CREATININE (BEAKER) (test qqlj=091) 0.94 mg/dL 0.57-1.25 Specimen moderately hemolyzed GLUCOSE RANDOM (BEAKER) (test zcoa=864) 113 mg/dL 70-105 CALCIUM (BEAKER) (test csmu=779) 10.1 mg/dL 8.4-10.2 AST (SGOT) (BEAKER) (test wpfw=656) 42 U/L 5-34 Specimen moderately hemolyzed ALT (SGPT) (BEAKER) (test tlme=563) 21 U/L 6-55 Specimen moderately hemolyzed EGFR (BEAKER) (test tfdd=4932) 79 mL/min/1.73 sq m ESTIMATED GFR IS NOT ACCURATE CREATININE CLEARANCE IN PREDICTING GLOMERULAR FILTRATION RATE. ESTIMATED GFR IS NOT APPLICABLE FOR DIALYSIS PATIENTS. Add onHEPATIC FUNCTION [id number] 18:08:00* Test Item Value Reference Range Comments TOTAL PROTEIN (BEAKER) (test syfg=259) 8.4 gm/dL 6.0-8.3 Specimen markedly hemolyzed ALBUMIN (BEAKER) (test qmic=7414) 4.8 g/dL 3.5-5.0 Specimen markedly hemolyzed BILIRUBIN TOTAL (BEAKER) (test vppu=397) 0.6 mg/dL 0.2-1.2 Specimen markedly hemolyzed BILIRUBIN DIRECT (BEAKER) (test umov=916) 0.2 mg/dL 0.1-0.5 Specimen markedly hemolyzed ALKALINE PHOSPHATASE (BEAKER) (test yyre=035) 98 U/L 40-150 AST (SGOT) (BEAKER) (test poin=875) 40 U/L 5-34 Specimen markedly hemolyzed ALT (SGPT) (BEAKER) (test grpt=209) 22 U/L 6-55 Specimen markedly hemolyzed BLOOD GAS, [id number] 15:11:00* Test Item Value Reference Range Comments PH ARTERIAL (BEAKER) (test czmv=851) 7.46 7.35-7.45 PCO2 ARTERIAL (BEAKER) (test zrid=392) 33 mmHg 35-45 PO2 ARTERIAL (BEAKER) (test gvct=628) 71 mmHg 80-90 O2 SATURATION ARTERIAL (BEAKER) (test mbgj=444) 95.7 % 96.0-97.0 HCO3 ARTERIAL (BEAKER) (test ucsb=999) 23 mmol/L 21-29 BASE EXCESS ARTERIAL (BEAKER) (test rvch=889) 0.0 mmol/L -2.0-3.0 PATIENT TEMPERATURE (BEAKER) (test jbvt=2382) 36.1 C FIO2 (BEAKER) (test stbc=4500) 21.0 % RAD, ABDOMEN/KUB, 1 VIEW [id number] 12:34:00Reason for exam:->SHORTNESS OF BREATHReason for exam:->abd painFINAL REPORT Abdomen one view INDICATION: Abdominal pain, [...] No organomegaly is evident. Signed: Carmelo Alcazar Verified Date/Time: 02/18/2018 12:34:13 Reading Location: [facility] Radiology Reading Room , CHEST WITH IV CONTRAST- PE TEST [id number] 09:55:00Reason for exam:->SHORTNESS OF BREATHWhat is the patient's sedation requirement?->No SedationFINAL REPORT CT OF THE CHEST, PULMONARY EMBOLISM [...] clear. No focal consolidation. Minimal subsegmental bibasilar atelectasis.PLEURA: No effusion or pneumothorax.HEART AND MEDIASTINUM: The ascending thoracic aorta is [...] acute findings in the chest. Signed: Patrick Hampton Verified Date/Time: 02/18/2018 09:55:34 Reading Location: [facility] Diagnostic Imaging Reading Room - [place] [id number] , CHEST, 1 VIEW, NON [id number] 08:47:00Reason for exam:-> SHORTNESS OF BREATHFINAL REPORT Chest one view INDICATION: Shortness of breath COMPARISON: None available IMPRESSION: Increased interstitial markings may indicate vascular congestion or mild atypical pneumonitis. No significant pleural effusion or pneumothorax is seen. Cardiomediastinal silhouette prominence is accentuated by obliquity and low lung volumes. No acute osseous abnormality is identified. Signed: Carmelo Alcazar MDReport Verified Date/Time: 02/18/2018 08:47:14 Reading Location: [facility] Radiology Reading Room TINE KINASE (CK), TOTAL AND MB 2018-02-18 08:44:00* Test Item Value Reference Range Comments CREATINE KINASE TOTAL (BEAKER) (test qwza=034) 253 U/L 29-200 CREATINE KINASE-MB (BEAKER) (test ksii=819) 4.0 ng/mL 0.0-6.6 CREATINE KINASE-MB INDEX (BEAKER) (test tncp=164) 1.6 % CK-MB Reference Range:<6.7 Normal6.7-10.0 Borderline>10.0 Abnormal TROPONIN [id number] 08:44:00* Test Item Value Reference Range Comments TROPONIN I (BEAKER) (test zshe=575) 0.01 ng/mL 0.00-0.03 Troponin I (TnI) levels must be interpreted in the context of the presenting sym ptoms and the clinical findings. Elevated TnI levels indicate myocardial damage, but are not specific for ischemic heart disease. Elevated TnI levels are seen in patients with other cardiac conditions (including myocarditis and congestive h eart failure), and slight TnI elevations occur in patients with other conditions , including sepsis, renal failure, acidosis, acute neurological disease, and per sistent tachyarrhythmia.B-TYPE NATRIURETIC FACTOR (BNP)2018-02-18 08:43:00* Test Item Value Reference Range Comments B-TYPE NATRIURETIC PEPTIDE (BEAKER) (test hxpt=143) 95 pg/mL 0-100 [id number] 08:37:00* Test Item Value Reference Range Comments MAGNESIUM (BEAKER) (test tznf=721) 2.2 mg/dL 1.6-2.6 BASIC METABOLIC [id number] 08:37:00* Test Item Value Reference Range Comments SODIUM (BEAKER) (test qfrv=456) 141 meq/L 136-145 POTASSIUM (BEAKER) (test lvfs=322) 4.2 meq/L 3.5-5.1 CHLORIDE (BEAKER) (test qrjw=238) 110 meq/L 98-107 CO2 (BEAKER) (test qudf=652) 23 meq/L 22-29 BLOOD UREA NITROGEN (BEAKER) (test dtwr=043) 17 mg/dL 7-21 CREATININE (BEAKER) (test efhc=172) 0.88 mg/dL 0.57-1.25 GLUCOSE RANDOM (BEAKER) (test gcua=393) 97 mg/dL 70-105 CALCIUM (BEAKER) (test tqsf=458) 10.0 mg/dL 8.4-10.2 EGFR (BEAKER) (test leqj=6670) 85 mL/min/1.73 sq m INSUFFICIENT CLINICAL DATA TO CALCULATE ESTIMATED GFR. PT/[id number] 08:21:00* Test Item Value Reference Range Comments PROTIME (BEAKER) (test oqtj=161) 14.5 seconds 11.7-14.7 INR (BEAKER) (test pelf=897) 1.1 <=5.9 PARTIAL THROMBOPLASTIN TIME (BEAKER) (test jcxk=884) 32.1 seconds 22.5-36.0 RECOMMENDED COUMADIN/WARFARIN INR THERAPY RANGESSTANDARD DOSE: 2.0 - 3.0 Inclu hanny: PROPHYLAXIS for venous thrombosis, systemic embolization; TREATMENT for meri ous thrombosis and/or pulmonary embolus.HIGH RISK: Target INR is 2.5-3.5 for pat ients with mechanical heart valves.CBC W/PLT COUNT & AUTO [id number] 08:10:00* Test Item Value Reference Range Comments WHITE BLOOD CELL COUNT (BEAKER) (test yyjw=515) 6.4 K/ L 3.5-10.5 RED BLOOD CELL COUNT (BEAKER) (test emth=096) 5.23 M/ L 4.63-6.08 HEMOGLOBIN (BEAKER) (test zbqk=692) 15.7 GM/DL 13.7-17.5 HEMATOCRIT (BEAKER) (test hlqe=879) 46.4 % 40.1-51.0 MEAN CORPUSCULAR VOLUME (BEAKER) (test wzaj=469) 88.7 fL 79.0-92.2 MEAN CORPUSCULAR HEMOGLOBIN (BEAKER) (test rrzy=560) 30.0 pg 25.7-32.2 MEAN CORPUSCULAR HEMOGLOBIN CONC (BEAKER) (test uvls=318) 33.8 GM/DL 32.3-36.5 RED CELL DISTRIBUTION WIDTH (BEAKER) (test iatb=277) 12.9 % 11.6-14.4 PLATELET COUNT (BEAKER) (test maez=739) 214 K/CU MM 150-450 MEAN PLATELET VOLUME (BEAKER) (test nwnx=965) 11.3 fL 9.4-12.4 NUCLEATED RED BLOOD CELLS (BEAKER) (test bwxk=530) 0 /100 WBC 0-0 NEUTROPHILS RELATIVE PERCENT (BEAKER) (test chhh=822) 71 % LYMPHOCYTES RELATIVE PERCENT (BEAKER) (test bxbp=165) 20 % MONOCYTES RELATIVE PERCENT (BEAKER) (test iyok=699) 7 % EOSINOPHILS RELATIVE PERCENT (BEAKER) (test blgh=962) 1 % BASOPHILS RELATIVE PERCENT (BEAKER) (test eees=991) 1 % NEUTROPHILS ABSOLUTE COUNT (BEAKER) (test dsht=182) 4.54 K/ L 1.78-5.38 LYMPHOCYTES ABSOLUTE COUNT (BEAKER) (test zgbv=448) 1.29 K/ L 1.32-3.57 MONOCYTES ABSOLUTE COUNT (BEAKER) (test mktj=640) 0.42 K/ L 0.30-0.82 EOSINOPHILS ABSOLUTE COUNT (BEAKER) (test bkie=153) 0.05 K/ L 0.04-0.54 BASOPHILS ABSOLUTE COUNT (BEAKER) (test kmjb=988) 0.04 K/ L 0.01-0.08 IMMATURE GRANULOCYTES-RELATIVE PERCENT (BEAKER) (test ceqs=1908) 1 % 0-1
[2019-01-14 13:25] VITALS: BP 135/84
== END | disposition home or self-care (01) ==
LOC: OR 10:33
PROVIDERS: ATTEND Ophthalmology
DX: H25.12 Age-related nuclear cataract, left eye (principal); I10 Essential (primary) hypertension; K21.9 Gastro-esophageal reflux disease without esophagitis; Z68.38 Body mass index [BMI] 38.0-38.9, adult
CPT/HCPCS: 66984; J2250

== ENCOUNTER → 2019-01-28 | Day surgery (SDC) | payer MEDICARE ==
--- OUTSIDE RECORDS SUMMARY | 2019-01-28 10:12 | XMS REPORT | Clinical Summary ---
Author Author [facility] CenterBirdDogNavos Health Organization [facility] Address Unknown Phone Unavailable Care Team Providers Care Driver'S License Examiner Name Role Phone Juan Ramon Peters PCP [...] 02/18/2018 Orders Only General Internal Medicine after 01/27/2018 Family History Medical History Relation Name Comments [...] ms QTC Calculatio n(Bazett) 447 ms P [place] 40 degrees R [place] -33 degrees T [place] 36 degrees Sinus bradycardi a Left axis [...] (7) STAT 02/18/2018 8:03 AM CDT after 01/27/2018 Results * RHYTHM STRIP - SCAN (08/29/2018 3:11 PM CDT) Only the most recent of 2 results within the time period is included. Narrative Performed At * CT chest without IV contrast (06/17/2018 8:04 AM CDT) Narrative Performed At [facility]AL 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 [...] MD Report Verified Date/Time:06/17/2018 08:22:25 Reading Location: [facility] Diagnostic Imaging Reading Room - [place] [address] Procedure Note Interface, External Ris In - [...] Report Verified Date/Time: 06/17/2018 08:22:25 Reading Location: [facility] Diagnostic Imaging Reading Room - [place] [address] Performing Organization Address City/State/Zipcode Phone Number GE RIS * REPORT OF PROCEDURE - ENDOSCOPY URL (02/21/2018 2:28 PM CDT) Narrative Performed At * Tissue Exam (02/21/2018 1:12 PM CDT) Case Report Surgical Pathology [facility] Report [facility] Case: [id number] Authorizing Provider:Ady Gamez MDCollected: 02/21/2018 1312 Ordering Location: [address] Received: 02/22/2018 0750 Service Pathologist: He Aparicio MD Specimens: A) - Biopsy, Gastric B) - Biopsy, Gastroesophageal Junction DIAGNOSIS A. STOMACH, BIOPSY [facility] - CHRONIC INACTIVE GASTRITIS [facility] - POSITIVE FOR HELICOBACTER ON IMMUNOSTAIN B. GASTROESOPHAGEAL JUNCTION, BIOPSY - MILD CHRONIC ESOPHAGITIS - NEGATIVE FOR HELICOBACTER ON WARTHIN-STARRY STAIN Signing Pathologist Direct Phone Line: [phone] CPT Code(s) 67874 x 2; 61292 x 2; 24984 [facility] CLINICAL HISTORY Abnormal findings on imaging [facility] test [facility] SPECIMEN SOURCE A. Gastric biopsy; B. [facility] Gastroesophageal junction [facility] biopsy GROSS DESCRIPTION Specimen is received in two [facility] containers of formalin both [facility] labeled with the patient's information. Part A labeled "gastric biopsy" consists of two fragments of valencia tissue measuring 0.1 and 0.2 cm, submitted A1. Part B labeled "gastroesophageal junction biopsy" consists of two fragments of off white soft tissue both measuring 0.3 cm, submitted entirely B1. CG/pl MICROSCOPIC DESCRIPTION Performed. [facility] SPECIAL STUDIES The following special studies [facility] were performed on this case [facility] and the interpretation is incorporated in the diagnostic report above: H. Pylori - Positive The immunohistochemistry test was developed and its performance characteristics determined by [facility], Pathology Laboratory. It has not [...] Tissue - Biopsy, Gastric Performing Organization Address [facility] Health Centercode Phone Number [address] * Calcium, Ionized (02/21/2018 5:03 AM CDT) Only the most recent of 3 results within the time period is included. Calcium, Ion 1.04 (L) 1.12 - 1.27 mmol/L [facility] pH, Blood 7.47 [facility] Specimen Blood - Arm, Left Performing Organization Address City/[facility] [place] [address] [phone] [place] [address] * Prothrombin time/INR (02/21/2018 5:03 AM CDT) Only the most recent of 3 results within the time period is included. Protime 14.3 11.7 - 14.7 seconds [facility] INR 1.1 <=5.9 [facility] Specimen Blood - Arm, Left Narrative Performed At RECOMMENDED COUMADIN/WARFARIN INR THERAPY RANGES [facility] STANDARD DOSE: 2.0 - 3.0 Includes: PROPHYLAXIS for venous thrombosis, [facility] systemic embolization; TREATMENT for venous thrombosis and/or pulmonary embolus. HIGH RISK: Target INR is 2.5-3.5 for patients with mechanical heart valves. Performing Organization Address City/[facility] Centercout Phone Number [facility] [address] [place] [address] [facility] * CBC (Hemogram only) (02/21/2018 5:03 AM CDT) Only the most recent of 2 results within the time period is included. WBC 7.8 3.5 - 10.5 K/L [facility] RBC 4.86 4.63 - 6.08 M/L [facility] Hemoglobin 14.8 13.7 - 17.5 GM/DL [facility] Hematocrit 44.1 40.1 - 51.0 % [facility] MCV 90.7 79.0 - 92.2 fL [facility] MCH 30.5 25.7 - 32.2 pg [facility] MCHC 33.6 32.3 - 36.5 GM/DL [facility] RDW 12.9 11.6 - 14.4 % [facility] Platelets 199 150 - 450 K/CU MM [facility] MPV 11.5 9.4 - 12.4 fL [facility] nRBC 0 0 - 0 /100 WBC [facility] Specimen Blood - Arm, Left Performing Organization Address [facility] Phone Number [facility] [address] [place] [address] [facility] * Magnesium (02/21/2018 5:03 AM CDT) Only the most recent of 4 results within the time period is included. Magnesium 2.5Comment: Specimen slightly 1.6 - 2.6 mg/dL [facility] hemolyzed [facility] Specimen Blood - Arm, Left Performing Organization Address City/[facility] Phone Number [facility] [address] [place], [place] [phone] [facility] * Hepatic function panel (02/21/2018 5:03 AM CDT) Only the most recent of 4 results within the time period is included. Protein, Total 6.9Comment: Specimen slightly 6.0 - 8.3 gm/dL [facility] Albumin 4.3Comment: Specimen slightly 3.5 - 5.0 g/dL [facility] Total Bilirubin 0.6Comment: Specimen slightly 0.2 - 1.2 mg/dL [facility] Bilirubin, Direct 0.2Comment: Specimen slightly 0.1 - 0.5 mg/dL [facility] Alkaline Phosphatase 78 40 - 150 U/L [facility] AST 46 (H)Comment: Specimen 5 - 34 U/L [facility] slightly [facility] ALT 28Comment: Specimen slightly 6 - 55 U/L [facility] Specimen Blood - Arm, Left Performing Organization Address City/State/Zipcode Phone Number [facility] [address] [place] [address] [facility] * Lipid panel (02/21/2018 5:03 AM CDT) Only the most recent of 3 results within the time period is included. Triglycerides 76Comment: Specimen slightly mg/dL [facility] Cholesterol 172Comment: Specimen slightly mg/dL [facility] HDL 38 mg/dL [facility] LDL Calculated 119 mg/dL [facility] Specimen Blood - Arm, Left Narrative Performed At Triglyceride Reference Range: [facility] Low Risk <150 [facility] [id number] High Risk 200-499 Very High Risk>=500 Cholesterol Reference Range: Low Risk <200 [id number] High Risk>240 HDL Cholesterol Reference Range: Low Risk >=60 High Risk <40 LDL Cholesterol Reference Range: Optimal<100 Near [id number] [id number] Fhyb200-672 Very High >=190 Performing Organization Address [facility] Centercout Phone Number [facility] [address] [place], [place] [phone] [facility] * Basic metabolic panel (02/21/2018 5:03 AM CDT) Only the most recent of 4 results within the time period is included. Sodium 138 136 - 145 meq/L [facility] Potassium 3.9Comment: Specimen slightly 3.5 - 5.1 meq/L [facility] Chloride 106 98 - 107 meq/L [facility] CO2 20 (L) 22 - 29 meq/L [facility] BUN 33 (H) 7 - 21 mg/dL [facility] Creatinine 0.87Comment: Specimen slightly 0.57 - 1.25 mg/dL [facility] Glucose 101 70 - 105 mg/dL [facility] Calcium 9.1 8.4 - 10.2 mg/dL [facility] EGFR 86Comment: ESTIMATED GFR IS mL/min/1.73 sq m [facility] NOT ACCURATE CREATININE [facility] CLEARANCE IN PREDICTING GLOMERULAR FILTRATION RATE. ESTIMATED GFR IS NOT APPLICABLE FOR DIALYSIS PATIENTS. Specimen Blood - Arm, Left Performing Organization Address [facility] Centercout Phone Number [place] [phone] [place] [address] [facility] * CT abdomen/pelvis with IV contrast (02/20/2018 8:47 PM CDT) Narrative Performed At FINAL REPORT [facility] CT abdomen and pelvis with contrast. INDICATION: [...] of hypodensity suggestive of cysts. Signed: Zoran Smiht MD Report Verified Date/Time:02/20/2018 22:28:44 Reading Location: [address] Consult Reading Room Procedure Note Interface, [...] Report Verified Date/Time: 02/20/2018 22:28:44 Reading Location: [address] Consult Reading Room Performing Organization Address City/State/Zipcode Phone Number GE RIS * ECHOCARDIOGRAM REPORT - SCAN (02/20/2018 5:43 PM CDT) Narrative Performed At * 2D Echo W/Doppler(CW/PW/Color) (02/20/2018 3:02 PM CDT) Ejection Fraction [facility] ECHO [facility] Narrative Performed At Transthoracic Echocardiography Report (TTE) [facility] ECHO [facility] Demographics [facility] Patient NameDominique DONNELLY of Study02/20/2018 DARLENE Gender Male Visit [id number] Race Unknown [id number] Number Date of 1945 ReferringAdalbertou Cornel [place] Age 72 year(s) SonographerOscar CHICHI Viera Interpreting [facility] Needs to be Pre Physician Read Sherri [...] Study 02/20/2018 DARLENE Gender Male Visit Number [id number] Race Unknown Room Number 734 Number Date of 1945 Referring Maikol Gillis Physician NELLA WASHINGTON Age 72 year(s) Jacquard Lace Weaver CHICHI Jay Interpreting [facility] Needs to be Pre Physician Read Sherri [...] PM CDT) Narrative Performed At FINAL REPORT [facility] PROCEDURE:Rest/Stress MYOCARDIAL PERFUSION SPECT with regadenoson\\XA9\\ CPT CODE:84129 INDICATION:Shortness of breath, cardiac origin suspected HISTORY:Cardiac [...] function.5. Normal extracardiac tracer distribution.6. No previous [facility] study for comparison. NONINVASIVE RISK STRATIFICATION: The above findings are considered low risk (<1% annual mortality rate) based on the following criterion: - Normal or small myocardial perfusion defect at rest or with stress ([facility]. 2012;59(9):389-60.) Signed: Trevin Nichols MD Report Verified Date/Time:02/20/2018 15:43:59 Reading Location: [address] P[address] Reading Room Procedure Note Interface, External Ris In - 02/20/2018 3:46 PM CDT FINAL REPORT PROCEDURE: Rest/Stress MYOCARDIAL PERFUSION SPECT with regadenoson\\XA9\\ CPT CODE: 60788 INDICATION: Shortness of breath, cardiac origin suspected [...] Normal extracardiac tracer distribution. 6. No previous [facility] study for comparison. NONINVASIVE RISK STRATIFICATION: The above findings are considered low risk (<1% annual mortality rate) based on the following criterion: - Normal or small myocardial perfusion defect at rest or with stress ([facility]. 2012;59(9):857-81.) Signed: Trevin Nichols MD Report Verified Date/Time: 02/20/2018 15:43:59 Reading Location: [address] Reading Room Performing Organization Address City/State/Zipcode Phone Number GE RIS * Treadmill tolerance(Non-Nuclear Treadmill) (02/20/2018 10:10 AM CDT) Narrative Performed At Protocol Name [facility] ACTV8me Time In Exercise Phase 00:01:00 Max. Systolic [...] 1:47:28 PM Confirmed by MD MIRANDA JORGE ([id number]) on 02/25/2018 2:02:27 PM Procedure Note Interface, [...] 1:47:28 PM Confirmed by MD RUTH, BENITO ([id number]) on 02/25/2018 2:02:27 PM Performing Organization Address City/State/Zipcode Phone Number RJ MUSE * FL esophagus (02/19/2018 10:13 AM CDT) Narrative Performed At FINAL REPORT [facility] Esophagram History: GERD Technique: Esophagram was performed [...] MD Report Verified Date/Time:02/19/2018 10:31:00 Reading Location: [address] Ortho Consult Reading Room Procedure Note [...] Report Verified Date/Time: 02/19/2018 10:31:00 Reading Location: [address] Ortho Consult Reading Room Performing Organization Address City/State/Zipcode Phone Number GE RIS * CBC with platelet count + automated diff (02/19/2018 4:35 AM CDT) Only the most recent of 2 results within the time period is included. WBC 7.8 3.5 - 10.5 K/L [facility] RBC 5.04 4.63 - 6.08 M/L [facility] Hemoglobin 15.3 13.7 - 17.5 GM/DL [facility] Hematocrit 44.7 40.1 - 51.0 % [facility] MCV 88.7 79.0 - 92.2 fL [facility] MCH 30.4 25.7 - 32.2 pg [facility] MCHC 34.2 32.3 - 36.5 GM/DL [facility] RDW 12.7 11.6 - 14.4 % [facility] Platelets 218 150 - 450 K/CU MM [facility] MPV 11.6 9.4 - 12.4 fL [facility] nRBC 0 0 - 0 /100 WBC [facility] % Neutros 83 % [facility] % Lymphs 15 % [facility] % Monos 1 % [facility] % Eos 0 % [facility] % Baso 0 % [facility] # Neutros 6.45 (H) 1.78 - 5.38 K/L [facility] # Lymphs 1.17 (L) 1.32 - 3.57 K/L [facility] # Monos 0.08 (L) 0.30 - 0.82 K/L [facility] # Eos 0.00 (L) 0.04 - 0.54 K/L [facility] # Baso 0.01 0.01 - 0.08 K/L [facility] Immature 1 0 - 1 % [facility] Granulocytes-Relative [facility] Specimen Blood - Arm, Left Performing Organization Address City/State/Zipcode Phone Number [facility] [address] * Troponin I (02/19/2018 4:35 AM CDT) Only the most recent of 3 results within the time period is included. Troponin I <0.01 0.00 - 0.03 ng/mL [facility] Specimen Blood - Arm, Left Narrative Performed At Troponin I (TnI) levels must be interpreted in the context of the presenting [facility] symptoms and the clinical findings. Elevated TnI levels indicate myocardial [facility] damage, but are not specific for ischemic heart disease. Elevated TnI levels are seen in patients with other cardiac conditions (including myocarditis and congestive heart failure), and slight TnI elevations occur in patients with other conditions, including sepsis, renal failure, acidosis, acute neurological disease, and persistent tachyarrhythmia. Performing Organization Address City/State/Zipcode Phone Number [address] * Hemoglobin A1c (02/19/2018 4:35 AM CDT) Hemoglobin A1C 5.0 4.3 - 6.1 % [facility] Specimen Blood - Arm, Left Performing Organization Address City/State/[facility] Centercode Phone Number [place] [phone] [address] * ECG 12 lead (02/18/2018 8:15 PM CDT) Only the most recent of 2 results within the time period is included. Narrative Performed At Ventricular Rate 67 BPM GE MUSE Atrial Rate 67 BPM P-R Interval 158 ms QRS Duration 142 ms Q-T Interval 448 ms QTC Calculation(Bazett) 473 ms P [place] 41 degrees R [place] -39 degrees T [place] 22 degrees Normal sinus rhythm Left axis [...] 448 ms QTC Calculation(Bazett) 473 ms P [place] 41 degrees R [place] -39 degrees T [place] 22 degrees Normal sinus rhythm Left axis deviation Right bundle branch block Abnormal ECG When compared with ECG of 18-FEB-2018 08:18, No significant change was found Confirmed by Semaj RAINEY MICHAEL ([id number]) on 02/19/2018 8:12:03 AM Performing Organization Address City/State/Zipcode Phone Number GE MUSE * Comprehensive metabolic panel (02/18/2018 5:40 PM CDT) Protein, Total 8.3Comment: Specimen 6.0 - 8.3 gm/dL [facility] hemolyzed [facility] Albumin 4.8Comment: Specimen 3.5 - 5.0 g/dL [facility] hemolyzed [facility] Alkaline Phosphatase 99 40 - 150 U/L [facility] Total Bilirubin 0.6Comment: Specimen 0.2 - 1.2 mg/dL [facility] hemolyzed [facility] Sodium 139 136 - 145 meq/L [facility] Potassium 4.6Comment: Specimen 3.5 - 5.1 meq/L [facility] hemolyzed [facility] Chloride 111 (H) 98 - 107 meq/L [facility] CO2 20 (L) 22 - 29 meq/L [facility] BUN 18 7 - 21 mg/dL [facility] Creatinine 0.94Comment: Specimen 0.57 - 1.25 mg/dL [facility] moderately hemolyzed [facility] Glucose 113 (H) 70 - 105 mg/dL [facility] Calcium 10.1 8.4 - 10.2 mg/dL [facility] AST 42 (H)Comment: Specimen 5 - 34 U/L [facility] hemolyzed [facility] ALT 21Comment: Specimen moderately 6 - 55 U/L [facility] EGFR 79Comment: ESTIMATED GFR IS mL/min/1.73 sq m [facility] NOT ACCURATE CREATININE [facility] CLEARANCE IN PREDICTING GLOMERULAR FILTRATION RATE. ESTIMATED GFR IS NOT APPLICABLE FOR DIALYSIS PATIENTS. Specimen Blood Narrative Performed At Add on [facility] Performing Organization Address [facility]/Zipcode Phone Number [facility] [address] [place] [address] [facility] * Blood gas, arterial (02/18/2018 2:51 PM CDT) pH, Arterial 7.46 (H) 7.35 - 7.45 [facility] pCO2, Arterial 33 (L) 35 - 45 mmHg [facility] pO2, Arterial 71 (L) 80 - 90 mmHg [facility] O2 Sat, Arterial 95.7 (L) 96.0 - 97.0 % [facility] HCO3, Arterial 23 21 - 29 mmol/L [facility] Base Excess, Arterial 0.0 -2.0 - 3.0 mmol/L [facility] Patient Temperature 36.1 C [facility] FIO2 21.0 % [facility] Specimen Blood - Arm, Right Performing Organization Address [facility] Centercode Phone Number [facility] [address] [place] [address] [facility] * XR abdomen / KUB 1 view (02/18/2018 12:23 PM CDT) Narrative Performed At FINAL REPORT [facility] Abdomen one view INDICATION: Abdominal pain, shortness [...] MD Report Verified Date/Time:02/18/2018 12:34:13 Reading Location: [facility] Radiology Reading Room Procedure Note Interface, [...] Report Verified Date/Time: 02/18/2018 12:34:13 Reading Location: [facility] Radiology Reading Room Performing Organization Address City/State/Zipcode Phone Number [place] [facility] * CT chest PE test design (02/18/2018 9:37 AM CDT) Narrative Performed At FINAL REPORT [facility] CT OF THE CHEST, PULMONARY EMBOLISM PROTOCOL [...] MD Report Verified Date/Time:02/18/2018 09:55:34 Reading Location: [facility] Diagnostic Imaging Reading Room - [place] [address] Procedure Note Interface, External Ris In [...] Report Verified Date/Time: 02/18/2018 09:55:34 Reading Location: [facility] Diagnostic Imaging Reading Room - [place] [address] Performing Organization Address [facility] Centercout Phone Number GE RIS * XR chest [...] MD Report Verified Date/Time:02/18/2018 08:47:14 Reading Location: [facility] Radiology Reading Room Procedure Note Interface, [...] Report Verified Date/Time: 02/18/2018 08:47:14 Reading Location: [facility] Radiology Reading Room Performing Organization Address [facility] Centercode Phone Number GE RIS * PT/PTT (02/18/2018 8:03 AM CDT) Protime 14.5 11.7 - 14.7 seconds [facility] INR 1.1 <=5.9 [facility] PTT 32.1 22.5 - 36.0 seconds [facility] Specimen Blood - Arm, Right Narrative Performed At RECOMMENDED COUMADIN/WARFARIN INR THERAPY RANGES [facility] STANDARD DOSE: 2.0 - 3.0 Includes: PROPHYLAXIS for venous thrombosis, [facility] systemic embolization; TREATMENT for venous thrombosis and/or pulmonary embolus. HIGH RISK: Target INR is 2.5-3.5 for patients with mechanical heart valves. Performing Organization Address City/[facility]/Zipcode Phone Number [facility] [address] [place], [place] [phone] [facility] * B-type Natriuretic Factor (BNP) (02/18/2018 8:03 AM CDT) BNP 95 0 - 100 pg/mL [facility] Specimen Blood - Arm, Right Performing Organization Address City/[facility] Centercode Phone Number [facility] [address] [place] [address] [facility] * Creatine Kinase (CK), Total and MB (not available at [facility] [place]) (02/18/2018 8:03 AM CDT) Total CK 253 (H) 29 - 200 U/L [facility] CK-MB 4.0 0.0 - 6.6 ng/mL [facility] MB Relative Index 1.6 % [facility] Specimen Blood - Arm, Right Narrative Performed At CK-MB Reference Range: [facility] <6.7Normal [facility] 6.7-10.0Borderline >10.0 Abnormal Performing Organization Address [facility] Centercout Phone Number [facility] [address] [place] [address] [facility] after 01/27/2018 Insurance Payer Benefit Subscriber ID Type Phone Address Plan / [facility] [facility] - [employer]/MEDIC xxxxxxxxx MEDICARE MGD CARE ARE COMPLETE Advance Directives For more information, please contact: [address] [address] Date Inactivated Comments Code Status Date Activated 02/21/2018 9:03 PM Full Code 02/18/2018 12:00 PM This code status was determined by: Patient
[2019-01-28 11:08] LABS: BASOPHILS # (AUTO) 0.1 (0.0-0.1); BASOPHILS % 1.1 % (0.0-1.0); EOSINOPHILS # (AUTO) 0.3 (0.0-0.4); EOSINOPHILS % 4.8 % (0.0-6.0); HEMATOCRIT 43.8 % (38.2-49.6); HEMOGLOBIN 15.2 g/dL (14.0-18.0); LYMPHOCYTES # (AUTO) 1.8 (1.0-3.2); LYMPHOCYTES % 32.8 % (18.0-39.1); MEAN CORPUSCULAR HEMOGLOBIN 31.1 pg (28-32); MEAN CORPUSCULAR HGB CONC 34.7 g/dL (31-35); MEAN CORPUSCULAR VOLUME 89.6 fL (81-99); MONOCYTES # (AUTO) 0.6 (0.2-0.8); MONOCYTES % 10.2 % (4.4-11.3); NEUTROPHILS # (AUTO) 2.8 (2.1-6.9); NEUTROPHILS % 50.7 % (38.7-80.0); PLATELET COUNT 200 x10e3/uL (140-360); RED BLOOD COUNT 4.89 x10e6/uL (4.3-5.7); RED CELL DISTRIBUTION WIDTH 12.6 % (11.7-14.4)
[2019-01-28 13:00] VITALS: BP 136/80
== END | disposition home or self-care (01) ==
LOC: OR 10:09
PROVIDERS: ATTEND Ophthalmology
DX: H25.11 Age-related nuclear cataract, right eye (principal); I10 Essential (primary) hypertension; K21.9 Gastro-esophageal reflux disease without esophagitis; Z68.38 Body mass index [BMI] 38.0-38.9, adult
CPT/HCPCS: 36415; 66984; 85025; J2250

== ENCOUNTER → 2019-07-29 | Day surgery (SDC) | payer MEDICARE ==
[~2019-07-29] MED LIST changes: +BALANCED SALT SOLN (OPTH) 15 ML BTL IO ONE; +DIOVAN HCT 1601 EACH PO; +DIOVAN160 MG PO; +FUROSEMIDE40 MG PO; +LIDOCAINE 2% /EPINEPHRINE 20 ML SDV INJ ONE; +LIDOCAINE HCL 2% LOCAL INJ 5 ML SDV VIAL INJ ONE; +NEOMYCIN/POLYMYXIN/DEX (OPTH) 3.5 GM TUBE ONE; +OMEPRAZOLE40 MG PO; -OR PHACO EYE KIT ONE; +POVIDONE IODINE 5% (OPTH) 30 ML BTL ONE; -PREOP PHACO EYE KIT ONE; +PROPOFOL IV EMULSION 10 MG/ML 20 ML VIAL ONE
--- OUTSIDE RECORDS SUMMARY | 2019-07-29 11:11 | XMS REPORT | Clinical Summary ---
Author Author [facility] Organization [facility] Address Unknown Phone Unavailable Care Team Providers Care Emergency Dept Tech Name Role Phone Juan Ramon Peters PCP Allergies No Known Allergies Medications End Date Status Medication Sig Dispensed Refills Start Date Active amLODIPine (NORVASC) 10 Take 10 mg by 0 MG tablet mouth daily. Active lisinopril Take 40 mg by 0 (PRINIVIL,ZESTRIL) 40 MG mouth daily. tablet Active pantoprazole (PROTONIX) Take 1 tablet 60 [...] capsule by mouth 3 (three) times daily. 02/22/2019 furosemide (LASIX) 20 MG Take 1 tablet 30 tablet 0 tablet (20 mg total) 8 by mouth daily. Active Problems Problem Noted Date Dyspnea and respiratory abnormality 02/18/2018 Family History Medical History Relation Name Comments [...] travel history available. Last Filed Vital Signs Not on file Plan of Treatment Not on file Procedures Comments Procedure Name Priority Date/Time Associated Diagnosis RHYTHM STRIP - SCAN 08/29/2018 3:11 PM CDT after 07/28/2018 Results * RHYTHM STRIP - SCAN (08/29/2018 3:11 PM CDT) Narrative Performed At after 07/28/2018 Insurance Payer Benefit Subscriber ID Type Phone Address Plan / Group [facility] - [employer]ARP/MEDIC xxxxxxxxx MEDICARE MGD CARE ARE COMPLETE Advance Directives For more information, please contact: [facility] [address] [place] [address] Date Inactivated Comments Code Status Date Activated 02/21/2018 9:03 PM Full Code 02/18/2018 12:00 PM This code status was determined by: Patient
[2019-07-29 17:25] VITALS: BP 154/78
== END | disposition home or self-care (01) ==
LOC: OR 11:08
PROVIDERS: ATTEND Ophthalmology
DX: H02.834 Dermatochalasis of left upper eyelid (principal); H02.831 Dermatochalasis of right upper eyelid; I10 Essential (primary) hypertension; K21.9 Gastro-esophageal reflux disease without esophagitis; E66.9 Obesity, unspecified; Z68.41 Body mass index [BMI] 40.0-44.9, adult
CPT/HCPCS: 15823; J2001 ×2; J2250; J2704; J3010